=== PATIENT | female | born 1945 ===

== ENCOUNTER 2017-05-29 19:18 | Inpatient (IN) | payer MEDICAID ==
[2017-05-29 19:47] LABS: BASO % 0.8 % (0.0-2.0); EOS # 0.1 K/uL (0.0-0.7); EOS % 0.9 % (0.0-4.0); HEMOGLOBIN 13.1 g/dL (11.0-16.0); LYMPH # 3.9 K/uL (1.0-4.3); LYMPH % 65.7 % (20.0-40.0); MEAN CELL VOLUME 81.4 fL (81.0-99.0); MEAN CORPUSCULAR HEMOGLOBIN 26.7 pg (27.0-31.0); MEAN CORPUSCULAR HGB CONC 32.8 g/dL (33.0-37.0); MEAN PLATELET VOLUME 8.5 fL (7.2-11.7); MONO # 0.4 K/uL (0.0-0.8); MONO % 7.3 % (0.0-10.0); NEUT # 1.5 K/uL (1.8-7.0); NEUT % 25.3 % (50.0-75.0); NRBC % 0.1 % (0.0-2.0); RBC 4.89 Mil/uL (3.80-5.20); RED CELL DISTRIBUTION WIDTH 14.4 % (11.5-14.5); WHITE BLOOD COUNT 5.9 K/uL (4.8-10.8)
[2017-05-29 20:10] LABS: ALBUMIN 4.5 g/dL (3.5-5.0); ALT/SGPT 9 U/L (9-52); AST/SGOT 31 U/L (14-36); BLOOD UREA NITROGEN 16 mg/dL (7-17); CALCIUM 9.1 mg/dl (8.6-10.4); GFR AFRICAN-AMERICAN > 60; GFR NON-AFRICAN AMERICAN > 60
[2017-05-29] MEDS ORDERED: Iodixanol 320 MG/ML 100 ML BOTTLE IV ONE (20:30)
--- NOTE | 2017-05-29 20:53 | C.PDOC ---
History Of Present Illness 72-year-old female, presents to the emergency department with complaints of mid sternal chest pain since yesterday, increasing when he walks. Denies shortness of breath or cough. Patient has not seen PMD in two years, and has not had a cardiac workup in five years. Chief Complaint (Nursing): Chest Pain History Per: Patient History/Exam Limitations: no limitations Past Medical History Reviewed: Historical Data, Nursing Documentation, Vital Signs Vital Signs: Last Vital Signs Temp 99.1 F 05/29/17 23:40 Pulse 69 05/29/17 22:52 Resp 16 05/29/17 22:52 BP 150/85 05/29/17 22:52 Pulse Ox 100 05/29/17 22:52 - Medical History PMH: HTN Family History: States: No Known Family Hx - Social History Hx Alcohol Use: No Hx Substance Use: No - Immunization History Hx Tetanus Toxoid Vaccination: No Review Of Systems Constitutional: Negative for: Fever, Chills Cardiovascular: Positive for: Chest Pain Respiratory: Positive for: Cough, Shortness of Breath, SOB with Excertion Gastrointestinal: Negative for: Vomiting Musculoskeletal: Negative for: Back Pain Skin: Negative for: Rash Neurological: Negative for: Weakness, Numbness, Headache, Dizziness Physical Exam - Physical Exam Appears: Non-toxic, No Acute Distress Skin: Normal Color, Warm, Dry, No Rash Head: Normacephalic Eye(s): bilateral: PERRL Nose: Normal Oral Mucosa: Moist Lips: Normal Appearing Neck: Normal ROM Chest: Symmetrical Cardiovascular: Rhythm Regular, No Murmur Respiratory: Normal Breath Sounds, No Accessory Muscle Use Extremity: Normal ROM, No Deformity, No Swelling Neurological/Psych: Oriented x3, Normal Speech ED Course And Treatment - Laboratory Results Result Diagrams: 05/29/17 19:43 05/29/17 19:43 ECG: Interpreted By Me, Viewed By Me Interpretation Of ECG: ST Depression, lateral leads. left atrial enlargement. Rate From EC O2 Sat by Pulse Oximetry: 100 (RA) Pulse Ox Interpretation: Normal Disposition - Disposition Disposition: HOSPITALIZED Disposition Time: 22:15 Condition: STABLE - Clinical Impression Clinical Impression: Chest pain - Scribe Statement The provider has reviewed the documentation as recorded by the Scribe (Kavita Rodriguez) All medical record entries made by the Scribe were at my direction and personally dictated by me. I have reviewed the chart and agree that the record accurately reflects my personal performance of the history, physical exam, medical decision making, and the department course for this patient. I have also personally directed, reviewed, and agree with the discharge instructions and disposition.
--- NOTE | 2017-05-29 21:55 | CT ---
EXAM: CT Chest With Intravenous Contrast CLINICAL HISTORY: 72 years old, female; Condition or disease; Other: R/O dissection; Cardiovascular condition or disease and lung condition and disease; Aortic dissection (thoracic aorta); Location not specified; Other: Widened mediastinum; Additional info: Widened mediastium - R/O dissection TECHNIQUE: Axial computed tomography images of the chest with intravenous contrast. All CT scans at this facility use one or more dose reduction techniques, viz.: automated exposure control; ma/kV adjustment per patient size (including targeted exams where dose is matched to indication; i.e. head); or iterative reconstruction technique. Coronal and sagittal reformatted images were created and reviewed. CONTRAST: 100 mL of visipaque 320 administered intravenously. COMPARISON: No relevant prior studies available. FINDINGS: Lungs: The hypoventilatory changes are seen in the dependent portion of the right lung base in the left lung base. Discoid atelectasis is noted within the left upper lobe. Pleural space: Unremarkable. No pneumothorax. No significant effusion. Heart: Unremarkable. No cardiomegaly. No significant pericardial effusion. Bones/joints: Unremarkable. No acute fracture. No dislocation. Soft tissues: Unremarkable. Vasculature: The aortic annulus measures 1.7 mm in diameter. sinotubular junction measures 2.7 mm in diameter. The ascending thoracic aorta measures 3.3 mm in maximal diameter. The descending thoracic aorta measures 2.3 cm in diameter. No thoracic aortic aneurysm. Lymph nodes: Unremarkable. No enlarged lymph nodes. IMPRESSION: 1. No evidence of aortic dissection. 2. Discoid atelectasis left upper lobe. EXAM: CT Abdomen and Pelvis With Intravenous Contrast EXAM DATE/TIME: Exam ordered 05/29/2017 8:18 PM CLINICAL HISTORY: 72 years old, female; Condition or disease; Other: R/O dissection; Cardiovascular condition or disease and lung condition and disease; Aortic dissection (thoracic aorta); Location not specified; Other: Widened mediastinum; Additional info: Widened mediastium - R/O dissection TECHNIQUE: Axial computed tomography images of the abdomen and pelvis with intravenous contrast. All CT scans at this facility use one or more dose reduction techniques, viz.: automated exposure control; ma/kV adjustment per patient size (including targeted exams where dose is matched to indication; i.e. head); or iterative reconstruction technique. Coronal and sagittal reformatted images were created and reviewed. CONTRAST: 100 mL of visipaque 320 administered intravenously. COMPARISON: No relevant prior studies available. FINDINGS: Lung bases: Unremarkable. No mass. No consolidation. ABDOMEN: Liver: Unremarkable. No mass. Gallbladder and bile ducts: Gallstones are seen in the gallbladder. No ductal dilation. Pancreas: Unremarkable. No mass. No ductal dilation. Spleen: Unremarkable. No splenomegaly. Adrenals: Unremarkable. No mass. Kidneys and ureters: There are 3 nonobstructing calcifications in the left kidney. It measure 1.7, 2.3 and 2.4 cm respectively in maximal diameter. The largest has a density measurement of 312 H. On the right there are 2 calcifications, one in the midportion the kidney measuring 2 mm with a density measurement of approximately 300 and a second calcification in the lower pole measuring 2.4 mm the density measurement of 390 4H. Stomach and bowel: There generalized colonic diverticula with diverticulosis in the sigmoid colon. No obstruction. No mucosal thickening. Appendix: No findings to suggest acute appendicitis. PELVIS: Bladder: Unremarkable. No mass. Reproductive: Unremarkable as visualized. ABDOMEN and PELVIS: Intraperitoneal space: Unremarkable. No free air. No significant fluid collection. Bones/joints: No acute fracture. No dislocation. Soft tissues: Unremarkable. Vasculature: No abdominal aortic aneurysm. Lymph nodes: Unremarkable. No enlarged lymph nodes. IMPRESSION: 1. Bilateral nonobstructing renal calculi. 2. Gallstones. 3. Sigmoid colonic diverticulosis. No evidence of diverticulitis.
--- NOTE | 2017-05-29 23:09 | CP.PCM.HP ---
<Cee Farah - Last Filed: 05/29/17 23:54> History of Present Illness - History of Present Illness History of Present Illness: HPI: Chest Pain Patient is a 72 year old female with past medical history of HTN, who presents to the ED with her daughter with complaints of chest pain that started yesterday , while she was sleeping. Patient describes her chest pain as sharp that originates for mid-sternum to left chest wall and radiating to her neck/throat region. Patient noted associated symptoms of palpitations, diaphoresis and dyspnea and headache. Patient states she felt like she could not breath with the onset of her chest pain and it was exacerbated with walking. Patient denies prior history of this presentation, fever, chills, nausea, vomiting, neck stiffness, blurry vision, recent travels or numbness and tingling. As per daughter, patient has not seek medical care in over 5 years due to back and forth travelling to the and [facility]. PMD: Denies PMHx: HTN PSHx: Hysterectomy FHx: Mother ( due to complication of vaginal cancer), Father ( from natural causes) Medications: Bisoprolol Humifumarate Allergies: NKDA Social Hx: Lives with daughter, resides both in [facility] and [facility]. Denies any current or former use of tobacco, ETOH and illicit drugs Present on Admission - Present on Admission Any Indicators Present on Admission: No Review of Systems - Constitutional Constitutional: Headache. absent: Chills, Fever, Night Sweats - EENT Eyes: absent: Blurred Vision, Change in Vision - Cardiovascular Cardiovascular: Chest Pain, Chest Pain at Rest, Chest Pain with Activity, Diaphoresis, Dyspnea, Palpitations, Radiating Pain. absent: Irregular Heart Rhythm, Leg Edema, Lightheadedness, Orthopnea, Paroxysmal Nocturnal Dyspnea, Pedal Edema, Syncope - Respiratory Respiratory: Dyspnea. absent: Cough, Wheezing, Snoring - Gastrointestinal Gastrointestinal: absent: Abdominal Pain, Hematemesis, Hematochezia, Nausea, Vomiting - Reproductive: Female Reproductive:Female: S/P Hysterectomy - Menstruation Menstruation: S/P Hysterectomy - Musculoskeletal Musculoskeletal: absent: Neck Pain, Numbness - Neurological Neurological: absent: Dizziness, Numbness, Focal Weakness, Loss of Vision, Radicular Pain, Syncope, Tingling - Endocrine Endocrine: Palpitations Past Patient History - Past Social History Smoking Status: Never Smoked - CARDIAC Hx Hypertension: Yes - PSYCHIATRIC Hx Substance Use: No Meds Allergies/Adverse Reactions: Allergies Allergy/AdvReac Type Severity Reaction Status Date / Time No Known Allergies Allergy Unverified 05/29/17 19:25 Physical Exam - Constitutional Appears: No Acute Distress - Head Exam Head Exam: ATRAUMATIC, NORMAL INSPECTION - Eye Exam Eye Exam: EOMI, Normal appearance - ENT Exam ENT Exam: Mucous Membranes Moist - Respiratory Exam Respiratory Exam: Clear to Auscultation Bilateral, NORMAL BREATHING PATTERN. absent: Rhonchi, Wheezes, Respiratory Distress - Cardiovascular Exam Cardiovascular Exam: REGULAR RHYTHM, +S1, +S2. absent: Tachycardia, Diastolic murmur, Irregular Rhythm, Systolic Murmur - GI/Abdominal Exam GI & Abdominal Exam: Normal Bowel Sounds, Soft. absent: Distended, Firm, Guarding, Tenderness - Extremities Exam Extremities exam: Positive for: normal inspection. Negative for: calf tenderness, pedal edema, tenderness - Back Exam Back exam: NORMAL INSPECTION - Neurological Exam Neurological exam: Alert, Oriented x3 - Psychiatric Exam Psychiatric exam: Normal Affect - Skin Skin Exam: Normal Color Results - Vital Signs Recent Vital Signs: Last Vital Signs Temp 98 F 05/29/17 19:23 Pulse 69 05/29/17 22:52 Resp 16 05/29/17 22:52 BP 150/85 05/29/17 22:52 Pulse Ox 100 05/29/17 22:52 - Labs Result Diagrams: 05/29/17 19:43 05/29/17 19:43 Labs: Laboratory Results - last 24 hr 05/29/17 05/29/17 19:43 19:43 WBC 5.9 RBC 4.89 Hgb 13.1 Hct 39.8 MCV 81.4 MCH 26.7 L MCHC 32.8 L RDW 14.4 Plt Count 265 MPV 8.5 Neut % (Auto) 25.3 L Lymph % (Auto) 65.7 H Hunt % (Auto) 7.3 Eos % (Auto) 0.9 Baso % (Auto) 0.8 Neut # (Auto) 1.5 L Lymph # (Auto) 3.9 Hunt # (Auto) 0.4 Eos # (Auto) 0.1 Baso # (Auto) 0.0 Sodium 144 Potassium 3.8 Chloride 103 Carbon Dioxide 24 Anion Gap 21 H BUN 16 Creatinine 0.8 Est GFR ( Amer) > 60 Est GFR (Non-Af Amer) > 60 Random Glucose 112 H Calcium 9.1 Total Bilirubin 0.6 AST 31 ALT 9 Alkaline Phosphatase 78 Troponin I 0.0400 Total Protein 8.9 H Albumin 4.5 Globulin 4.4 H Albumin/Globulin Ratio 1.0 Assessment & Plan (1) Chest pain, rule out acute myocardial infarction Assessment and Plan: Consultation: Admissions Gate Attendant, Dr. Bach---> Help appreciated * Management as per recommendation Diagnostic testing/ Labs: Chest X-ray: No active disease CT chest with IV contrast (Rule out Dissection): No evidence of aortic dissection. 2. Discoid atelectasis left upper lobe. EKG: NSR at 88bpm, Left ventricular hypertrophy with repolarization abnormality DARRYL negative x1, f/u DARRYL x2 F/u echocardiogram F/u lipid panel, TSH and free T4, HgbA1C, Medications: * Aspirin 81mg PO daily * Crestor 5mg PO HS Status: Acute (2) Hypertension Assessment and Plan: Continue home medication: * Bisoprolol Hemifumarate 5mg PO daily * Monitor with vital sign Q4H Status: Acute (3) Prophylactic measure Assessment and Plan: GI: Protonix 40mg PO daily DVT: Lovenox 30mg SC and SCD Heart healthy diet Activity as tolerated All plans and management discussed with Dr. Jacobs Status: Acute <Rg Jacobs - Last Filed: 05/30/17 05:57> Results - Vital Signs Recent Vital Signs: Last Vital Signs Temp 98.1 F 05/29/17 23:55 Pulse 78 05/29/17 23:55 Resp 20 05/29/17 23:55 BP 164/84 H 05/29/17 23:55 Pulse Ox 100 05/30/17 00:39 - Labs Result Diagrams: 05/29/17 19:43 05/29/17 19:43 Labs: Laboratory Results - last 24 hr 05/29/17 05/29/17 05/30/17 19:43 19:43 02:32 WBC 5.9 RBC 4.89 Hgb 13.1 Hct 39.8 MCV 81.4 MCH 26.7 L MCHC 32.8 L RDW 14.4 Plt Count 265 MPV 8.5 Neut % (Auto) 25.3 L Lymph % (Auto) 65.7 H Hunt % (Auto) 7.3 Eos % (Auto) 0.9 Baso % (Auto) 0.8 Neut # (Auto) 1.5 L Lymph # (Auto) 3.9 Hunt # (Auto) 0.4 Eos # (Auto) 0.1 Baso # (Auto) 0.0 Sodium 144 Potassium 3.8 Chloride 103 Carbon Dioxide 24 Anion Gap 21 H BUN 16 Creatinine 0.8 Est GFR ( Amer) > 60 Est GFR (Non-Af Amer) > 60 Random Glucose 112 H Calcium 9.1 Total Bilirubin 0.6 AST 31 ALT 9 Alkaline Phosphatase 78 Total Creatine Kinase 58 CK-MB (Mass) 0.34 Troponin I 0.0400 0.0490 Total Protein 8.9 H Albumin 4.5 Globulin 4.4 H Albumin/Globulin Ratio 1.0 Assessment & Plan - Date & Time Date: 05/30/17 (I have seen and examined the patient. I agree with the findings and plan of care as documented by Dr. Farah. Patient with chest pain. ROMIx3 with EKG. Aspirin and Statin. Consult to cardio. 2D Echo. Continue home meds for history of hypertension. Monitor for acute changes.) Time: 05:56 Attending/Attestation - Attestation I have personally seen and examined this patient.: Yes I have fully participated in the care of the patient.: Yes I have reviewed all pertinent clinical information: Yes
--- NOTE | 2017-05-29 23:12 | CP.PCM.HP ---
Past Patient History - Past Social History Smoking Status: Never Smoked - CARDIAC Hx Hypertension: Yes - PSYCHIATRIC Hx Substance Use: No Meds Allergies/Adverse Reactions: Allergies Allergy/AdvReac Type Severity Reaction Status Date / Time No Known Allergies Allergy Unverified 05/29/17 19:25 Results - Vital Signs Recent Vital Signs: Last Vital Signs Temp 98 F 05/29/17 19:23 Pulse 69 05/29/17 22:52 Resp 16 05/29/17 22:52 BP 150/85 05/29/17 22:52 Pulse Ox 100 05/29/17 22:52 - Labs Result Diagrams: 05/29/17 19:43 05/29/17 19:43 Labs: Laboratory Results - last 24 hr 05/29/17 05/29/17 19:43 19:43 WBC 5.9 RBC 4.89 Hgb 13.1 Hct 39.8 MCV 81.4 MCH 26.7 L MCHC 32.8 L RDW 14.4 Plt Count 265 MPV 8.5 Neut % (Auto) 25.3 L Lymph % (Auto) 65.7 H Clarke % (Auto) 7.3 Eos % (Auto) 0.9 Baso % (Auto) 0.8 Neut # (Auto) 1.5 L Lymph # (Auto) 3.9 Clarke # (Auto) 0.4 Eos # (Auto) 0.1 Baso # (Auto) 0.0 Sodium 144 Potassium 3.8 Chloride 103 Carbon Dioxide 24 Anion Gap 21 H BUN 16 Creatinine 0.8 Est GFR ( Amer) > 60 Est GFR (Non-Af Amer) > 60 Random Glucose 112 H Calcium 9.1 Total Bilirubin 0.6 AST 31 ALT 9 Alkaline Phosphatase 78 Troponin I 0.0400 Total Protein 8.9 H Albumin 4.5 Globulin 4.4 H Albumin/Globulin Ratio 1.0
[2017-05-29] MEDS ORDERED: Alum-Mag Hydrox-Simethicone Susp (30 mL) PO ONE (23:25)
[2017-05-30 02:59] LABS: CK-MB 0.34 ng/mL (0.0-3.38)
[2017-05-30 03:01] LABS: TROPONIN I 0.049 ng/mL (0.00-0.120)
[2017-05-30] MEDS ORDERED: Metoprolol Succinate 25 mg XL Tab PO ONE (03:58)
[2017-05-30 07:24] LABS: BASO % 0.7 % (0.0-2.0); EOS # 0.1 K/uL (0.0-0.7); EOS % 1.5 % (0.0-4.0); HEMOGLOBIN 12.2 g/dL (11.0-16.0); LYMPH # 2.5 K/uL (1.0-4.3); LYMPH % 65.6 % (20.0-40.0); MEAN CELL VOLUME 81.3 fL (81.0-99.0); MEAN CORPUSCULAR HGB CONC 33.2 g/dL (33.0-37.0); MEAN PLATELET VOLUME 8.4 fL (7.2-11.7); MONO # 0.3 K/uL (0.0-0.8); NEUT % 25.2 % (50.0-75.0); RBC 4.51 Mil/uL (3.80-5.20); RED CELL DISTRIBUTION WIDTH 14.7 % (11.5-14.5); WHITE BLOOD COUNT 3.8 K/uL (4.8-10.8)
[2017-05-30 07:37] LABS: INR 1.1; PROTHROMBIN TIME 12.8 SECONDS (9.7-12.2)
[2017-05-30 08:01] LABS: LDL CHOLESTEROL 149 mg/dL (0-129)
[2017-05-30 08:02] LABS: ALBUMIN 3.9 g/dL (3.5-5.0); ALT/SGPT 10 U/L (9-52); AST/SGOT 27 U/L (14-36); BLOOD UREA NITROGEN 11 mg/dL (7-17); CALCIUM 8.9 mg/dl (8.6-10.4); GFR AFRICAN-AMERICAN > 60; GFR NON-AFRICAN AMERICAN > 60; HDL CHOLESTEROL 42 mg/dL (30-70)
--- NOTE | 2017-05-30 08:05 | RAD ---
PROCEDURE: CHEST RADIOGRAPH, 1 VIEW HISTORY: chest pain COMPARISON: None available. FINDINGS: LUNGS: Clear. PLEURA: No pneumothorax or pleural fluid seen. CARDIOVASCULAR: Normal. OSSEOUS STRUCTURES: No significant abnormalities. VISUALIZED UPPER ABDOMEN: Normal. OTHER FINDINGS: None. IMPRESSION: Baseline portable chest x-ray. No definite evidence of acute pulmonary disease.
[2017-05-30 08:26] LABS: CK-MB 0.31 ng/mL (0.0-3.38); TROPONIN I 0.063 ng/mL (0.00-0.120)
[2017-05-30] MEDS ORDERED: Pantoprazole 40 mg EC Tab PO SCH (10:00)
[2017-05-30] MEDS ORDERED: Enoxaparin 30 mg Syringe SC SCH (10:00)
--- NOTE | 2017-05-30 11:26 | CP.PCM.PN ---
<Shana Mayorga - Last Filed: 05/30/17 11:43> Subjective - Date & Time of Evaluation Date of Evaluation: 05/30/17 Time of Evaluation: 08:00 - Subjective Subjective: Patient was seen and examined at bedside this morning. She states that the chest pressure is still present that this sensation goes into her neck. She states she is also slightly short of breath. She denies diaphoresis, nausea/ vomiting or radiation of the pain to her jaw/arm. She reports that this sensation occurs at times when she is walking or climbing the stairs. She has never had a cardiac workup. Objective - Vital Signs/Intake and Output Vital Signs (last 24 hours): Temp Pulse Resp BP Pulse Ox 98.5 F 63 18 125/68 97 05/30/17 08:57 05/30/17 08:57 05/30/17 08:57 05/30/17 08:57 05/30/17 08:57 - Medications Medications: Current Medications Aspirin (Aspirin Chewable) 81 mg PO DAILY [facility] Bisoprolol Fumarate (Zebeta) 5 mg PO DAILY [facility] Last Admin: 05/29/17 23:40 Dose: 5 mg Enoxaparin Sodium (Lovenox) 30 mg SC DAILY [facility] Pantoprazole Sodium (Protonix Ec Tab) 40 mg PO DAILY [facility] Pneumococcal Polyvalent Vaccine (Pneumovax 23 Vaccine) 0.5 ml IM .ONCE ONE Stop: 06/02/17 10:01 Rosuvastatin Calcium (Crestor) 10 mg PO HS [facility] - Labs Labs: 05/30/17 07:16 05/30/17 07:16 PT 12.8 SECONDS (9.7-12.2) H 05/30/17 07:16 INR 1.1 05/30/17 07:16 APTT 32 SECONDS (21-34) 05/30/17 07:16 - Constitutional Appears: Non-toxic, No Acute Distress - Head Exam Head Exam: NORMAL INSPECTION - Eye Exam Eye Exam: EOMI, Normal appearance, PERRL Pupil Exam: NORMAL ACCOMODATION - ENT Exam ENT Exam: Mucous Membranes Moist - Respiratory Exam Respiratory Exam: Clear to Ausculation Bilateral, NORMAL BREATHING PATTERN. absent: Respiratory Distress - Cardiovascular Exam Cardiovascular Exam: REGULAR RHYTHM, +S1, +S2. absent: Tachycardia, JVD - GI/Abdominal Exam GI & Abdominal Exam: Soft, Normal Bowel Sounds. absent: Distended, Firm, Guarding, Tenderness - Extremities Exam Extremities Exam: Normal Inspection. absent: Pedal Edema - Back Exam Back Exam: NORMAL INSPECTION. absent: CVA tenderness (L), CVA tenderness (R), paraspinal tenderness - Neurological Exam Neurological Exam: Alert, Awake, CN II-XII Intact, Normal Gait, Oriented x3 Neuro motor strength exam: Left Upper Extremity: 5, Right Upper Extremity: 5, Left Lower Extremity: 5, Right Lower Extremity: 5 - Psychiatric Exam Psychiatric exam: Normal Affect, Normal Mood - Skin Skin Exam: Intact, Normal Color, Warm. absent: Diaphoretic Assessment and Plan - Assessment and Plan (Free Text) Assessment: 72 F with a past medical history of HTN admitted for chest pain to rule out ACS: Plan: Typical Angina Nurse Outreach Case Manager, Dr. Bach consulted, Help appreciated * Management as per recommendation -> plan for stress test on Thursday Chest X-ray: No active disease CT chest with IV contrast (Rule out Dissection): No evidence of aortic dissection. 2. Discoid atelectasis left upper lobe. EKG: NSR at 88bpm, Left ventricular hypertrophy with repolarization abnormality DARRYL negative x3 TSH 3.07 and T4 1.03 Aspirin 81mg PO daily Crestor 10mg PO HS F/u echocardiogram report f/u am labs, HbA1c Hypertension Bisoprolol 10mg PO daily (will increase from 5mg home dose) Patient was given one dose of Toprolol XL 25mg overnight Low sodium diet Hyperlipidemia Tchol 248, Trig 275, LDL 149, HDL 42 Crestor 10mg PO HS Prophylactic measure GI: Pepcid 20mg PO BID DVT: Lovenox 40mg SC, SCDs Heart healthy diet Activity as tolerated <Christiano Manjarrez - Last Filed: 05/30/17 14:39> Objective - Vital Signs/Intake and Output Vital Signs (last 24 hours): Temp Pulse Resp BP Pulse Ox 98.5 F 67 18 125/68 97 05/30/17 08:57 05/30/17 12:04 05/30/17 08:57 05/30/17 08:57 05/30/17 10:00 - Medications Medications: Current Medications Aspirin (Aspirin Chewable) 81 mg PO DAILY [facility] Last Admin: 05/30/17 11:38 Dose: 81 mg Bisoprolol Fumarate (Zebeta) 10 mg PO DAILY [facility] Enoxaparin Sodium (Lovenox) 40 mg SC DAILY [facility] Famotidine (Pepcid) 20 mg PO BID [facility] Pneumococcal Polyvalent Vaccine (Pneumovax 23 Vaccine) 0.5 ml IM .ONCE ONE Stop: 06/02/17 10:01 Rosuvastatin Calcium (Crestor) 10 mg PO HS [facility] - Labs Labs: 05/30/17 07:16 05/30/17 07:16 PT 12.8 SECONDS (9.7-12.2) H 05/30/17 07:16 INR 1.1 05/30/17 07:16 APTT 32 SECONDS (21-34) 05/30/17 07:16 Attending/Attestation - Attestation I have personally seen and examined this patient.: Yes I have fully participated in the care of the patient.: Yes I have reviewed all pertinent clinical information, including history, physical exam and plan: Yes Notes (Text): Patient seen and examined with resident, agree with above Angina symptoms with pressure like mid-sternal pain with radiation to her neck and jaw associated with mild sob Questionable history of similar pain in the past. No acute ischemic changes appreciated on ekg. Trop: 0.04-->0.04-->0.06. Elevated LDL - will increase to medium intensity statin with Crestor 10 mg. Blood pressure above goal. Optimize antihypertensives with Bisoprolol 10 mg asa/bblocker/statin echo to assess for WMA Case discussed with cardiology, Dr Bach who agrees for stress test on Thursday
--- NOTE | 2017-05-30 20:22 | CARD ---
APPROVED REPORT EXAM: Two-dimensional and M-mode echocardiogram with Doppler and color Doppler. Other Information Quality : GoodRhythm : INDICATION Chest Pain 2D DIMENSIONS IVSd1.3 (0.7-1.1cm)Aortic Root (2D)2.9 (2.0-3.7cm) LVDd3.8 (3.9-5.9cm)LVOT Diameter1.5 (1.8-2.4cm) PWd1.3 (0.7-1.1cm)LVDs2.9 (2.5-4.0cm) FS (%) 24.3 %LVEF (%)48.9 (>50%) M-Mode DIMENSIONS Left Atrium (MM)3.71 (2.5-4.0cm)Aortic Root3.42 (2.2-3.7cm) Aortic Cusp Exc.1.30 (1.5-2.0cm) Aortic Valve AI P 1/2 [id number] Mitral Valve MV E Nkekbgma40.3cm/sMV A Wufjekus099.9cm/sMV YRL40in E/A ratio0.7MVA (PHT)2.95cm2 TDI E/Lateral E'0.0E/Medial E'0.0 Tricuspid Valve TR Peak [id number]/sTR Peak Gr.[id number] LEFT VENTRICLE The left ventricle is normal size. There is borderline concentric left ventricular hypertrophy. The left ventricular function is normal. The left ventricular ejection fraction is within the normal range. There is normal LV segmental wall motion. Transmitral Doppler flow pattern is Grade I-abnormal relaxation pattern. RIGHT VENTRICLE The right ventricle is normal size. There is normal right ventricular wall thickness. The right ventricular systolic function is normal. ATRIA The left atrium size is normal. The right atrium size is normal. AORTIC VALVE The aortic valve is normal in structure. There is moderate aortic regurgitation. There is no aortic valvular stenosis. MITRAL VALVE The mitral valve is mildly thickened. There is no mitral valve stenosis. Mitral regurgitation is mild. TRICUSPID VALVE There is mild to moderate tricuspid regurgitation. There is mild to moderate pulmonary hypertension. PULMONIC VALVE There is mild pulmonic valvular regurgitation. GREAT VESSELS The aortic root is normal in size. The IVC was not visualized. <Conclusion> The left ventricle is normal size. There is borderline concentric left ventricular hypertrophy. The left ventricular function is normal. The left ventricular ejection fraction is within the normal range. There is normal LV segmental wall motion. Transmitral Doppler flow pattern is Grade I-abnormal relaxation pattern. There is moderate aortic regurgitation. Mitral regurgitation is mild. There is mild to moderate tricuspid regurgitation. There is mild to moderate pulmonary hypertension. There is mild pulmonic valvular regurgitation.
--- NOTE | 2017-05-31 00:29 | CP.PCM.PN ---
Addendum entered and electronically signed by Shana Mayorga DO 05/31/17 10:43: Impaired glucose tolerance HBA1c 6.1. Patient is to control with diet and lifestyle modifications. Original Note: <Cee Farah Yenni - Last Filed: 05/31/17 00:26> Subjective - Date & Time of Evaluation Date of Evaluation: 05/31/17 Time of Evaluation: 00:20 - Subjective Subjective: Patient was seen and examined at bedside. Patient was resting comfortably. Patient reports that she is doing well and has no acute complaints. Patient reports improving symptom of chest pain and denies SOB, palpitations, fever, chills, nausea, vomiting, diaphoresis and numbness and tingling. Patient is aware that she will be having a cardiac stress test with Dr. Bach on Thursday, Objective - Vital Signs/Intake and Output Vital Signs (last 24 hours): Temp Pulse Resp BP Pulse Ox 97.8 F 63 18 122/73 98 05/30/17 15:53 05/30/17 16:16 05/30/17 15:53 05/30/17 15:53 05/30/17 20:53 - Medications Medications: Current Medications Aspirin (Aspirin Chewable) 81 mg PO DAILY [facility] Last Admin: 05/30/17 11:38 Dose: 81 mg Bisoprolol Fumarate (Zebeta) 10 mg PO DAILY [facility] Enoxaparin Sodium (Lovenox) 40 mg SC DAILY [facility] Famotidine (Pepcid) 20 mg PO BID [facility] Last Admin: 05/30/17 17:27 Dose: 20 mg Pneumococcal Polyvalent Vaccine (Pneumovax 23 Vaccine) 0.5 ml IM .ONCE ONE Stop: 06/02/17 10:01 Rosuvastatin Calcium (Crestor) 10 mg [address] [facility] Last Admin: 05/30/17 21:47 Dose: 10 mg - Labs Labs: 05/30/17 07:16 05/30/17 07:16 PT 12.8 SECONDS (9.7-12.2) H 05/30/17 07:16 INR 1.1 05/30/17 07:16 APTT 32 SECONDS (21-34) 05/30/17 07:16 - Constitutional Appears: Well, No Acute Distress - Head Exam Head Exam: ATRAUMATIC, NORMAL INSPECTION - Eye Exam Eye Exam: EOMI, Normal appearance - ENT Exam ENT Exam: Mucous Membranes Moist - Respiratory Exam Respiratory Exam: Clear to Ausculation Bilateral, NORMAL BREATHING PATTERN. absent: Rhonchi, Wheezes - Cardiovascular Exam Cardiovascular Exam: REGULAR RHYTHM, +S1, +S2. absent: Murmur - GI/Abdominal Exam GI & Abdominal Exam: Soft, Normal Bowel Sounds. absent: Firm, Guarding, Rigid, Tenderness - Extremities Exam Extremities Exam: Normal Inspection. absent: Calf Tenderness, Pedal Edema - Neurological Exam Neurological Exam: Alert, Awake, Oriented x3 - Psychiatric Exam Psychiatric exam: Normal Affect - Skin Skin Exam: Normal Color Assessment and Plan (1) Typical angina Assessment & Plan: [facility]oles[facility] Psychiatrist, Dr. Bach consulted, Help appreciated * Management as per recommendation -> plan for stress test on Thursday Diagnostic imaging and labs: Chest X-ray: No active disease CT chest with IV contrast (Rule out Dissection): No evidence of aortic dissection. 2. Discoid atelectasis left upper lobe. EKG: NSR at 88bpm, Left ventricular hypertrophy with repolarization abnormality Echo: Left ventricular is normal size, normal ejection fraction, moderate AR, mild MR, mild to moderate TR and FL and mild to moderate pulmonary HTN. Refer to EMR for full report DARRYL negative x3 TSH 3.07 and T4 1.03 Lipid Panel: Tchol 248, Trig 275, LDL 149, HDL 42 F/u HgbA1C Medications Aspirin 81mg PO daily Crestor 10mg PO HS Status: Acute (2) Hypertension Assessment & Plan: Bisoprolol 10mg PO daily (increase from 5mg home dose) Low sodium diet Status: Acute (3) Prophylactic measure Assessment & Plan: GI: Pepcid 20mg PO BID DVT: Lovenox 40mg SC, SCDs Heart healthy diet Activity as tolerated All plans and management discussed with Dr. Loki Alvarado Status: Acute <Christiano Manjarrez - Last Filed: 05/31/17 11:07> Objective - Vital Signs/Intake and Output Vital Signs (last 24 hours): Temp Pulse Resp BP Pulse Ox 97.5 F L 52 L 20 116/71 95 05/31/17 07:25 05/31/17 07:25 05/31/17 07:25 05/31/17 07:25 05/31/17 07:25 Intake and Output: 05/31/17 05/31/17 06:59 18:59 Intake Total 0 Balance 0 - Medications Medications: Current Medications Aspirin (Aspirin Chewable) 81 mg PO DAILY [facility] Last Admin: 05/31/17 09:36 Dose: 81 mg Bisoprolol Fumarate (Zebeta) 10 mg PO DAILY [facility] Last Admin: 05/31/17 09:36 Dose: 10 mg Enoxaparin Sodium (Lovenox) 40 mg SC DAILY [facility] Last Admin: 05/31/17 09:36 Dose: 40 mg Famotidine (Pepcid) 20 mg PO BID [facility] Last Admin: 05/31/17 09:35 Dose: 20 mg Pneumococcal Polyvalent Vaccine (Pneumovax 23 Vaccine) 0.5 ml IM .ONCE ONE Stop: 06/02/17 10:01 Rosuvastatin Calcium (Crestor) [address] [facility] Last Admin: 05/30/17 21:47 Dose: 10 mg - Labs Labs: 05/31/17 07:32 05/31/17 07:32 PT 12.8 SECONDS (9.7-12.2) H 05/30/17 07:16 INR 1.1 05/30/17 07:16 APTT 32 SECONDS (21-34) 05/30/17 07:16 Attending/Attestation - Attestation I have personally seen and examined this patient.: Yes I have fully participated in the care of the patient.: Yes I have reviewed all pertinent clinical information, including history, physical exam and plan: Yes Notes (Text): Patient seen this morning. Agree with above Currently free of angina pain. Vitals reviewed. BP better controlled Echo with normal LVSF Continue current medical management plan for stress test on Thursday 06/[address] Bach Further diagnostics and/or intervention to follow depending on stress results and per cardio recommendations
--- NOTE | 2017-05-31 06:09 | CP.PCM.CON ---
History of Present Illness - History of Present Illness History of Present Illness: Patient seen and evaluated Admitted for chest pain Trops so far negative Stress test and ECHO Thursday Past Patient History - Past Social History Smoking Status: Never Smoked - CARDIAC Hx Hypertension: Yes - PSYCHIATRIC Hx Substance Use: No Meds Allergies/Adverse Reactions: Allergies Allergy/AdvReac Type Severity Reaction Status Date / Time No Known Allergies Allergy Unverified 05/29/17 19:25 - Medications Medications: Current Medications Aspirin (Aspirin Chewable) 81 mg PO DAILY [facility] Last Admin: 05/30/17 11:38 Dose: 81 mg Bisoprolol Fumarate (Zebeta) 10 mg PO DAILY [facility] Enoxaparin Sodium (Lovenox) 40 mg SC DAILY [facility] Famotidine (Pepcid) 20 mg PO BID [facility] Last Admin: 05/30/17 17:27 Dose: 20 mg Pneumococcal Polyvalent Vaccine (Pneumovax 23 Vaccine) 0.5 ml IM .ONCE ONE Stop: 06/02/17 10:01 Rosuvastatin Calcium (Crestor) 10 mg PO [facility] Last Admin: 05/30/17 21:47 Dose: 10 mg Results - Vital Signs Recent Vital Signs: Last Vital Signs Temp 98.1 F 05/30/17 23:15 Pulse 55 L 05/31/17 04:00 Resp 20 05/30/17 23:15 BP 114/69 05/30/17 23:15 Pulse Ox 97 05/30/17 23:15 - Labs Result Diagrams: 05/30/17 07:16 05/30/17 07:16 Labs: Laboratory Results - last 24 hr 05/30/17 05/30/17 05/30/17 07:16 07:16 07:16 WBC 3.8 L RBC 4.51 Hgb 12.2 Hct 36.7 MCV 81.3 MCH 27.0 MCHC 33.2 RDW 14.7 H Plt Count 237 MPV 8.4 Neut % (Auto) 25.2 L Lymph % (Auto) 65.6 H Cameron % (Auto) 7.0 Eos % (Auto) 1.5 Baso % (Auto) 0.7 Neut # (Auto) 1.0 L Lymph # (Auto) 2.5 Cameron # (Auto) 0.3 Eos # (Auto) 0.1 Baso # (Auto) 0.0 PT 12.8 H INR 1.1 APTT 32 Sodium 143 Potassium 3.8 Chloride 103 Carbon Dioxide 25 Anion Gap 18 BUN 11 Creatinine 0.7 Est GFR ( Amer) > 60 Est GFR (Non-Af Amer) > 60 Random Glucose 90 Calcium 8.9 Total Bilirubin 0.6 AST 27 ALT 10 Alkaline Phosphatase 72 Total Creatine Kinase CK-MB (Mass) Troponin I Total Protein 7.8 Albumin 3.9 Globulin 3.9 Albumin/Globulin Ratio 1.0 Triglycerides 275 H Cholesterol 248 H LDL Cholesterol Direct 149 H HDL Cholesterol 42 Free T4 TSH 3rd Generation 3.07 05/30/17 05/30/17 07:16 07:54 WBC RBC Hgb Hct MCV MCH MCHC RDW Plt Count MPV Neut % (Auto) Lymph % (Auto) Cameron % (Auto) Eos % (Auto) Baso % (Auto) Neut # (Auto) Lymph # (Auto) Cameron # (Auto) Eos # (Auto) Baso # (Auto) PT INR APTT Sodium Potassium Chloride Carbon Dioxide Anion Gap BUN Creatinine Est GFR ( Amer) Est GFR (Non-Af Amer) Random Glucose Calcium Total Bilirubin AST ALT Alkaline Phosphatase Total Creatine Kinase 62 CK-MB (Mass) 0.31 Troponin I 0.0630 Total Protein Albumin Globulin Albumin/Globulin Ratio Triglycerides Cholesterol LDL Cholesterol Direct HDL Cholesterol Free T4 1.03 TSH 3rd Generation
[2017-05-31 07:48] LABS: BASO % 0.6 % (0.0-2.0); EOS # 0.1 K/uL (0.0-0.7); EOS % 2.2 % (0.0-4.0); HEMOGLOBIN 12.3 g/dL (11.0-16.0); LYMPH # 2.2 K/uL (1.0-4.3); LYMPH % 63.5 % (20.0-40.0); MEAN CELL VOLUME 80.6 fL (81.0-99.0); MEAN CORPUSCULAR HEMOGLOBIN 26.5 pg (27.0-31.0); MEAN CORPUSCULAR HGB CONC 32.9 g/dL (33.0-37.0); MEAN PLATELET VOLUME 8.3 fL (7.2-11.7); MONO # 0.3 K/uL (0.0-0.8); MONO % 7.6 % (0.0-10.0); NEUT # 0.9 K/uL (1.8-7.0); NEUT % 26.1 % (50.0-75.0); NRBC % 0.2 % (0.0-2.0); RBC 4.64 Mil/uL (3.80-5.20); RED CELL DISTRIBUTION WIDTH 14.9 % (11.5-14.5); WHITE BLOOD COUNT 3.5 K/uL (4.8-10.8)
[2017-05-31 08:02] LABS: ALBUMIN 3.7 g/dL (3.5-5.0); ALT/SGPT 12 U/L (9-52); AST/SGOT 19 U/L (14-36); BLOOD UREA NITROGEN 15 mg/dL (7-17); CALCIUM 8.9 mg/dl (8.6-10.4); GFR AFRICAN-AMERICAN > 60; GFR NON-AFRICAN AMERICAN > 60
[2017-05-31] MEDS: Enoxaparin 40 mg Syringe SC SCH (09:36)
[2017-06-01 06:47] LABS: BASO % 0.8 % (0.0-2.0); EOS # 0.1 K/uL (0.0-0.7); EOS % 2.7 % (0.0-4.0); HEMOGLOBIN 12.1 g/dL (11.0-16.0); LYMPH # 1.6 K/uL (1.0-4.3); LYMPH % 49.4 % (20.0-40.0); MEAN CELL VOLUME 80.5 fL (81.0-99.0); MEAN CORPUSCULAR HEMOGLOBIN 26.8 pg (27.0-31.0); MEAN CORPUSCULAR HGB CONC 33.3 g/dL (33.0-37.0); MEAN PLATELET VOLUME 8.1 fL (7.2-11.7); MONO # 0.3 K/uL (0.0-0.8); MONO % 8.2 % (0.0-10.0); NEUT # 1.2 K/uL (1.8-7.0); NEUT % 38.9 % (50.0-75.0); RBC 4.51 Mil/uL (3.80-5.20); RED CELL DISTRIBUTION WIDTH 14.5 % (11.5-14.5); WHITE BLOOD COUNT 3.2 K/uL (4.8-10.8)
[2017-06-01 07:13] LABS: ALB/GLOB RATIO 1.1 (1.0-2.1); ALBUMIN 3.8 g/dL (3.5-5.0); ALT/SGPT 12 U/L (9-52); AST/SGOT 24 U/L (14-36); BLOOD UREA NITROGEN 18 mg/dL (7-17); CALCIUM 8.6 mg/dl (8.6-10.4); GFR AFRICAN-AMERICAN > 60; GFR NON-AFRICAN AMERICAN > 60
[2017-06-01] MEDS ORDERED: Aminophylline 25 mg/ml Inj ONE (07:55)
[2017-06-01] MEDS: Enoxaparin 40 mg Syringe SC SCH ×2 (11:25→11:36)
--- NOTE | 2017-06-01 16:48 | CP.PCM.PN ---
Subjective - Date & Time of Evaluation Date of Evaluation: 06/01/17 Objective - Vital Signs/Intake and Output Vital Signs (last 24 hours): Temp Pulse Resp BP Pulse Ox 97.7 F 62 20 126/74 98 06/01/17 15:39 06/01/17 15:43 06/01/17 15:39 06/01/17 15:39 06/01/17 15:39 Intake and Output: 06/01/17 06/01/17 06:59 18:59 Intake Total 0 Balance 0 - Medications Medications: Current Medications Aspirin (Aspirin Chewable) 81 mg PO DAILY [facility] Last Admin: 06/01/17 11:36 Dose: 81 mg Bisoprolol Fumarate (Zebeta) 10 mg PO DAILY [facility] Last Admin: 06/01/17 11:36 Dose: 10 mg Enoxaparin Sodium (Lovenox) 40 mg SC DAILY [facility] Last Admin: 06/01/17 11:36 Dose: 40 mg Famotidine (Pepcid) 20 mg PO BID [facility] Last Admin: 06/01/17 11:36 Dose: 20 mg Pneumococcal Polyvalent Vaccine (Pneumovax 23 Vaccine) 0.5 ml IM .ONCE ONE Stop: 06/02/17 10:01 Rosuvastatin Calcium (Crestor) 10 mg PO HS [facility] Last Admin: 05/31/17 21:22 Dose: 10 mg - Labs Labs: 06/01/17 06:39 06/01/17 06:39 PT 12.8 SECONDS (9.7-12.2) H 05/30/17 07:16 INR 1.1 05/30/17 07:16 APTT 32 SECONDS (21-34) 05/30/17 07:16 Assessment and Plan (1) Typical angina Status: Acute (2) Hypertension Status: Acute (3) Prophylactic measure Status: Acute
--- NOTE | 2017-06-01 17:21 | CP.PCM.PN ---
<Cee Farah - Last Filed: 06/01/17 17:28> Subjective - Date & Time of Evaluation Date of Evaluation: 06/01/17 Time of Evaluation: 07:15 - Subjective Subjective: Patient was seen and examined at bedside. Patient was resting comfortably. Patient reports that she is doing well and has no acute complaints. Patient reports improving symptom of chest pain and denies SOB, palpitations, fever, chills, nausea, vomiting, diaphoresis and numbness and tingling. Patient is aware that she will be having a cardiac stress test with Dr. Bach today. Objective - Vital Signs/Intake and Output Vital Signs (last 24 hours): Temp Pulse Resp BP Pulse Ox 97.7 F 62 20 126/74 98 06/01/17 15:39 06/01/17 15:43 06/01/17 15:39 06/01/17 15:39 06/01/17 15:39 Intake and Output: 06/01/17 06/01/17 06:59 18:59 Intake Total 0 Balance 0 - Medications Medications: Current Medications Aspirin (Aspirin Chewable) 81 mg PO DAILY [facility] Last Admin: 06/01/17 11:36 Dose: 81 mg Bisoprolol Fumarate (Zebeta) 10 mg PO DAILY [facility] Last Admin: 06/01/17 11:36 Dose: 10 mg Enoxaparin Sodium (Lovenox) 40 mg SC DAILY [facility] Last Admin: 06/01/17 11:36 Dose: 40 mg Famotidine (Pepcid) 20 mg PO BID [facility] Last Admin: 06/01/17 17:08 Dose: 20 mg Pneumococcal Polyvalent Vaccine (Pneumovax 23 Vaccine) 0.5 ml IM .ONCE ONE Stop: 06/02/17 10:01 Rosuvastatin Calcium (Crestor) 10 mg PO HS [facility] Last Admin: 05/31/17 21:22 Dose: 10 mg - Labs Labs: 06/01/17 06:39 06/01/17 06:39 PT 12.8 SECONDS (9.7-12.2) H 05/30/17 07:16 INR 1.1 05/30/17 07:16 APTT 32 SECONDS (21-34) 05/30/17 07:16 - Constitutional Appears: Well, No Acute Distress - Head Exam Head Exam: ATRAUMATIC, NORMAL INSPECTION - Eye Exam Eye Exam: EOMI, Normal appearance - ENT Exam ENT Exam: Mucous Membranes Moist - Respiratory Exam Respiratory Exam: Clear to Ausculation Bilateral, NORMAL BREATHING PATTERN. absent: Prolonged Expiratory Phase, Rhonchi, Wheezes, Respiratory Distress - Cardiovascular Exam Cardiovascular Exam: REGULAR RHYTHM, +S1, +S2. absent: Murmur - GI/Abdominal Exam GI & Abdominal Exam: Soft, Normal Bowel Sounds. absent: Firm, Guarding, Rigid, Tenderness - Extremities Exam Extremities Exam: Normal Inspection - Neurological Exam Neurological Exam: Alert, Awake, Oriented x3 - Psychiatric Exam Psychiatric exam: Normal Affect - Skin Skin Exam: Normal Color Assessment and Plan (1) Typical angina Assessment & Plan: [facility], Dr. Bach consulted, Help appreciated * Management as per recommendation * Stress test today, as per conversation with cardiology current resident, patient is for catherization on 06/03/17 Diagnostic imaging and labs: Chest X-ray: No active disease CT chest with IV contrast (Rule out Dissection): No evidence of aortic dissection. 2. Discoid atelectasis left upper lobe. EKG: NSR at 88bpm, Left ventricular hypertrophy with repolarization abnormality Echo: Left ventricular is normal size, normal ejection fraction, moderate AR, mild MR, mild to moderate TR and CA and mild to moderate pulmonary HTN. Refer to EMR for full report DARRYL negative x3 TSH 3.07 and T4 1.03 Lipid Panel: Tchol 248, Trig 275, LDL 149, HDL 42 HgbA1C: 6.1 Medications Aspirin 81mg PO daily Crestor 10mg PO HS Plavix 75mg PO daily Status: Acute (2) Hypertension Assessment & Plan: Bisoprolol 10mg PO daily (increase from 5mg home dose) Low sodium diet Status: Acute (3) Glucose intolerance (impaired glucose tolerance) Assessment & Plan: HBA1c 6.1 Counselled on diet control and life style modification Status: Acute (4) Prophylactic measure Assessment & Plan: GI: Pepcid 20mg PO BID DVT: Lovenox 40mg SC, SCDs Heart healthy diet Activity as tolerated All plans and management discussed with Dr. Cipriano Gordillo Status: Acute <Levon Gordillo - Last Filed: 06/01/17 19:28> Objective - Vital Signs/Intake and Output Vital Signs (last 24 hours): Temp Pulse Resp BP Pulse Ox 97.7 F 62 20 126/74 98 06/01/17 15:39 06/01/17 15:43 06/01/17 15:39 06/01/17 15:39 06/01/17 15:39 - Medications Medications: Current Medications Aspirin (Aspirin Chewable) 81 mg PO DAILY [facility] Last Admin: 06/01/17 11:36 Dose: 81 mg Bisoprolol Fumarate (Zebeta) 10 mg PO DAILY [facility] Last Admin: 06/01/17 11:36 Dose: 10 mg Clopidogrel Bisulfate (Plavix) 75 mg PO DAILY [facility] Enoxaparin Sodium (Lovenox) 40 mg SC DAILY [facility] Last Admin: 06/01/17 11:36 Dose: 40 mg Famotidine (Pepcid) 20 mg PO BID [facility] Last Admin: 06/01/17 17:08 Dose: 20 mg Pneumococcal Polyvalent Vaccine (Pneumovax 23 Vaccine) 0.5 ml IM .ONCE ONE Stop: 06/02/17 10:01 Rosuvastatin Calcium (Crestor) 10 mg PO HS [facility] Last Admin: 05/31/17 21:22 Dose: 10 mg - Labs Labs: 06/01/17 06:39 06/01/17 06:39 PT 12.8 SECONDS (9.7-12.2) H 05/30/17 07:16 INR 1.1 05/30/17 07:16 APTT 32 SECONDS (21-34) 05/30/17 07:16 Attending/Attestation - Attestation I have personally seen and examined this patient.: Yes I have fully participated in the care of the patient.: Yes I have reviewed all pertinent clinical information, including history, physical exam and plan: Yes Notes (Text): 06/01/17 19:26 Patient was seen and examined at 11:35 AM Exam, assessment and plan were gone over with the resident. Cardiology Dr. Bach after review of Stress Test today recommends and has planned for Cardiac Catheterization for Thursday06/03/17 morning. Levon Gordillo D.O.
[2017-06-01] MEDS ORDERED: Benzocaine/Menthol (Cepacol) Lozenge MT ONE (18:30)
--- NOTE | 2017-06-01 20:38 | CARD ---
APPROVED REPORT EKG Measurement Heart [id number] [place] [id number] [id number] <Conclusion> Normal sinus rhythm Left ventricular hypertrophy with repolarization abnormality Consider infero-lateral ischemia Abnormal ECG
--- NOTE | 2017-06-01 22:01 | CARD ---
APPROVED REPORT Protocol: LEXISCAN Test Type: LEXISCAN STRESS Test Indications: CHEST PAIN Medications: LIST Target HR: 150 bpm Resting ECG: NSR W/ NS ST T CHANGES Resting Heart Rate: 80 bpm Resting Blood Pressure: 128/80mmHg submaximum (85%): 128 bpm TEST SUMMARY [id number]:01..1.0./.0. PREINFSNHYPERV.08:[id number]/80.0. INFUSIONDOSE 100:[id number]/80.0. [id number]:040.00.01.080/80.0. PROCEDURE Pharmacologic stress testing was performed using 0.4mg per 5ml of regadenoson given intravenously over 7-10 seconds. Reversal agent aminophyline 100 mg, given intravenously for Syncope.Headache. POST EXERCISE Reason for Termination: Protocol Completed Target HR: No Max HR: 81 bpm 64% of Maximum Predicted HR: 150 bpm Exercise duration: 00:30 min:sec, 0 Stage Exercise capacity: 1.0METs Max Blood Pressure: 128/80mmHg Blood Pressure response to exercise: normal resting BP - appropriate response Heart Rate response to exercise: appropriate Chest Pain: No, none Angina index: 0 Arrhythmia: No, none ST Change: Yes, Depression horizontal 1 MM IN LEAD V3, 2MM IN V4-V6 Deviation: 0 mm INTERPRETATION Stress EKG Conclusion: POSITIVE LEXISCAN STRESS TEST NORMAL BP RESPONSE TO LEXISCAN NUCLEAR STUDIES TO BE READ SEPARATELY EXAM: Myocardial Perfusion STRESS/REST Imaging Protocol The imaging protocol used to acquire images was Stress Tc-99m/rest Tc-99m 1 day Stress Spect myocardial perfusion imaging was performed in supine position 41 minutes following the injection of 13.2 mCi of Tc-99 Myoview. Gated Rest Spect was performed 40 minutes after intravenous 32.6 mCi Tc-99 Myoview injection. The images were gated to evaluate regional wall motion and calculate ventricular ejection fraction.Images were reconstructed using backfilter projection method in short horizontal and verticle long axis. Spect slices were generated. RESTING DATA EDV48.00ml ESV7.00mlMyocardial Kzln886.00g EF85.00% STRESS DATA EDV70.00ml ESV15.00mlMyocardial Rxfo557.00g EF79.00% Regional WT score at stress:0.00 Regional WM score at stress:0.00 Summed WT score at stress:2.00 Summed WM score at stress:0.00 LV Perf. Quant 17 Seg. SSS10.00 17 Seg. SRS0.00 17 Seg. SDS10.00 Stress Defect Extent (% LAD)56.90Rest Defect Extent (% LAD)0.00Rev. Defect Extent (% LAD)56.90 Stress Defect Extent (% LCX)0.00Rest Defect Extent (% LCX)0.00Rev. Defect Extent (% LCX)0.00 Stress Defect Extent (% RCA)0.00Rest Defect Extent (% RCA)0.00Rev. Defect Extent (% RCA)0.00 Stress Defect Extent (% CHRISTOPHER)22.60Rest Defect Extent (% CHRISTOPHER)0.00Rev. Defect Extent (% CHRISTOPHER)22.60 IMPRESSION Normal Myocardial Perfusion exercise stress study Left Ventricle LV Size/Shape: The left ventricle is normal size. LV Function:Left ventricle systolic function is normal. The Ejection Fraction is >70%. Regional Wall Motion:There is normal left ventricular wall motion. Metabolism/Perfusion Defects: There is no scan evidence of reversible ischemia noted. Conclusion 1. There is no scan evidence of reversible ischemia noted. 2. Left ventricle systolic function is normal. 3. The Ejection Fraction is >70%.
--- NOTE | 2017-06-01 22:46 | CP.PCM.PN ---
Subjective - Date & Time of Evaluation Date of Evaluation: 06/01/17 Time of Evaluation: 16:20 - Subjective Subjective: Patient with abnormal stress test and exertional angina For cath Thursday am ASA, Plavix, Statins and B blockers Objective - Vital Signs/Intake and Output Vital Signs (last 24 hours): Temp Pulse Resp BP Pulse Ox 97.7 F 62 20 126/74 98 06/01/17 15:39 06/01/17 15:43 06/01/17 15:39 06/01/17 15:39 06/01/17 15:39 - Medications Medications: Current Medications Aspirin (Aspirin Chewable) 81 mg PO DAILY [facility] Last Admin: 06/01/17 11:36 Dose: 81 mg Bisoprolol Fumarate (Zebeta) 10 mg PO DAILY [facility] Last Admin: 06/01/17 11:36 Dose: 10 mg Clopidogrel Bisulfate (Plavix) 75 mg PO DAILY [facility] Enoxaparin Sodium (Lovenox) 40 mg SC DAILY [facility] Last Admin: 06/01/17 11:36 Dose: 40 mg Famotidine (Pepcid) 20 mg PO BID [facility] Last Admin: 06/01/17 17:08 Dose: 20 mg Pneumococcal Polyvalent Vaccine (Pneumovax 23 Vaccine) 0.5 ml IM .ONCE ONE Stop: 06/02/17 10:01 Rosuvastatin Calcium (Crestor) 10 mg PO HS [facility] Last Admin: 06/01/17 21:11 Dose: 10 mg - Labs Labs: 06/01/17 06:39 06/01/17 06:39 PT 12.8 SECONDS (9.7-12.2) H 05/30/17 07:16 INR 1.1 05/30/17 07:16 APTT 32 SECONDS (21-34) 05/30/17 07:16
[2017-06-02 07:18] LABS: BASO % 0.8 % (0.0-2.0); EOS # 0.1 K/uL (0.0-0.7); EOS % 2.4 % (0.0-4.0); HEMOGLOBIN 12.9 g/dL (11.0-16.0); LYMPH # 1.8 K/uL (1.0-4.3); MEAN CELL VOLUME 81.2 fL (81.0-99.0); MEAN CORPUSCULAR HEMOGLOBIN 26.8 pg (27.0-31.0); MEAN CORPUSCULAR HGB CONC 33.1 g/dL (33.0-37.0); MEAN PLATELET VOLUME 8.4 fL (7.2-11.7); MONO # 0.4 K/uL (0.0-0.8); MONO % 11.6 % (0.0-10.0); NEUT # 1.4 K/uL (1.8-7.0); NEUT % 37.2 % (50.0-75.0); NRBC % 0.1 % (0.0-2.0); RBC 4.82 Mil/uL (3.80-5.20); RED CELL DISTRIBUTION WIDTH 14.5 % (11.5-14.5); WHITE BLOOD COUNT 3.7 K/uL (4.8-10.8)
--- NOTE | 2017-06-02 07:46 | CP.PCM.PN ---
<Cee Farah E - Last Filed: 06/02/17 10:45> Subjective - Date & Time of Evaluation Date of Evaluation: 06/02/17 Time of Evaluation: 07:00 - Subjective Subjective: Progress note ( Dr. Cipriano Gordillo's service) Patient was seen and examined at bedside. Patient was resting comfortably. Patient reports that she is doing well and has no acute complaints. Patient reports improving symptom of chest pain and denies SOB, palpitations, fever, chills, nausea, vomiting, diaphoresis and numbness and tingling. Patient admits to non-productive cough but denies cough medicine when asked. Patient is aware that she is having a cardiac catherization tomorrow, Thursday (06/03/17) Objective - Vital Signs/Intake and Output Vital Signs (last 24 hours): Temp Pulse Resp BP Pulse Ox 98.0 F 63 20 120/76 97 06/02/17 07:20 06/02/17 07:20 06/02/17 07:20 06/02/17 07:20 06/02/17 07:20 - Medications Medications: Current Medications Aspirin (Aspirin Chewable) 81 mg PO DAILY [facility] Last Admin: 06/01/17 11:36 Dose: 81 mg Bisoprolol Fumarate (Zebeta) 10 mg PO DAILY [facility] Last Admin: 06/01/17 11:36 Dose: 10 mg Clopidogrel Bisulfate (Plavix) 75 mg PO DAILY [facility] Enoxaparin Sodium (Lovenox) 40 mg SC DAILY [facility] Last Admin: 06/01/17 11:36 Dose: 40 mg Famotidine (Pepcid) 20 mg PO BID [facility] Last Admin: 06/01/17 17:08 Dose: 20 mg Pneumococcal Polyvalent Vaccine (Pneumovax 23 Vaccine) 0.5 ml IM .ONCE ONE Stop: 06/02/17 10:01 Rosuvastatin Calcium (Crestor) 10 mg PO [facility] Last Admin: 06/01/17 21:11 Dose: 10 mg - Labs Labs: 06/02/17 07:03 06/01/17 06:39 PT 12.8 SECONDS (9.7-12.2) H 05/30/17 07:16 INR 1.1 05/30/17 07:16 APTT 32 SECONDS (21-34) 05/30/17 07:16 - Constitutional Appears: Well, No Acute Distress - Head Exam Head Exam: ATRAUMATIC, NORMAL INSPECTION - Eye Exam Eye Exam: EOMI, Normal appearance - ENT Exam ENT Exam: Mucous Membranes Moist - Respiratory Exam Respiratory Exam: Clear to Ausculation Bilateral, NORMAL BREATHING PATTERN. absent: Chest Wall Tenderness, Decreased Breath Sounds, Prolonged Expiratory Phase, Rhonchi, Wheezes, Respiratory Distress - Cardiovascular Exam Cardiovascular Exam: REGULAR RHYTHM, +S1, +S2. absent: Tachycardia, Irregular Rhythm, Murmur - GI/Abdominal Exam GI & Abdominal Exam: Soft, Normal Bowel Sounds. absent: Distended, Firm, Guarding, Rigid, Tenderness - Extremities Exam Extremities Exam: Normal Inspection. absent: Calf Tenderness, Pedal Edema, Tenderness - Neurological Exam Neurological Exam: Alert, Awake, Oriented x3 - Psychiatric Exam Psychiatric exam: Normal Affect - Skin Skin Exam: Normal Color Assessment and Plan (1) Typical angina Assessment & Plan: Ui Ux Web Developer, Dr. Bach consulted, Help appreciated * Management as per recommendation * Stress test today, as per conversation with cardiology current resident, patient is for catherization on 06/03/17 Diagnostic imaging and labs: Chest X-ray: No active disease CT chest with IV contrast (Rule out Dissection): No evidence of aortic dissection. 2. Discoid atelectasis left upper lobe. EKG: NSR at 88bpm, Left ventricular hypertrophy with repolarization abnormality Echo: Left ventricular is normal size, normal ejection fraction, moderate AR, mild MR, mild to moderate TR and ID and mild to moderate pulmonary HTN. Refer to EMR for full report DARRYL negative x3 TSH 3.07 and T4 1.03 Lipid Panel: Tchol 248, Trig 275, LDL 149, HDL 42 HgbA1C: 6.1 Medications Aspirin 81mg PO daily Crestor 10mg PO HS Plavix 75mg PO daily Status: Acute (2) Hypertension Assessment & Plan: BP stable with medications Bisoprolol 10mg PO daily (increase from 5mg home dose) Low sodium diet Status: Acute (3) Glucose intolerance (impaired glucose tolerance) Assessment & Plan: HBA1c 6.1 Counselled on diet control and life style modification Status: Acute (4) Prophylactic measure Assessment & Plan: GI: Pepcid 20mg PO BID DVT: Lovenox 40mg SC, SCDs--->Lovenox 40mg SC dose will be held for cardiac catherization, 06/03/17 Heart healthy diet Activity as tolerated All plans and management discussed with Dr. Cipriano Gordillo Status: Acute <Levon Gordillo - Last Filed: 06/02/17 17:07> Objective - Vital Signs/Intake and Output Vital Signs (last 24 hours): Temp Pulse Resp BP Pulse Ox 97.5 F L 86 20 137/77 97 06/02/17 15:00 06/02/17 15:50 06/02/17 15:00 06/02/17 15:00 06/02/17 15:00 - Medications Medications: Current Medications Aspirin (Aspirin Chewable) 81 mg PO DAILY [facility] Last Admin: 06/02/17 10:07 Dose: 81 mg Bisoprolol Fumarate (Zebeta) 10 mg PO DAILY [facility] Last Admin: 06/02/17 10:07 Dose: 10 mg Clopidogrel Bisulfate (Plavix) 75 mg PO DAILY [facility] Last Admin: 06/02/17 10:07 Dose: 75 mg Enoxaparin Sodium (Lovenox) 40 mg SC DAILY [facility] Last Admin: 06/02/17 10:07 Dose: 40 mg Famotidine (Pepcid) 20 mg PO BID [facility] Last Admin: 06/02/17 10:07 Dose: 20 mg Rosuvastatin Calcium (Crestor) 10 mg PO HS [facility] Last Admin: 06/01/17 21:11 Dose: 10 mg - Labs Labs: 06/02/17 07:03 06/02/17 07:03 PT 12.8 SECONDS (9.7-12.2) H 05/30/17 07:16 INR 1.1 05/30/17 07:16 APTT 32 SECONDS (21-34) 05/30/17 07:16 Attending/Attestation - Attestation I have personally seen and examined this patient.: Yes I have fully participated in the care of the patient.: Yes I have reviewed all pertinent clinical information, including history, physical exam and plan: Yes Notes (Text): 06/02/17 17:05 Patient was seen and examined at 8:30 AM with Nurse Geoffrey who helped to translate. Explained that she will be having cardiac catheterization with Dr. Bach 06/03/17 and explained to her what the purpose of this procedure was. She had no further questions. Levon Gordillo D.O.
[2017-06-02 08:18] LABS: ALBUMIN 3.9 g/dL (3.5-5.0); ALT/SGPT 12 U/L (9-52); AST/SGOT 31 U/L (14-36); BLOOD UREA NITROGEN 18 mg/dL (7-17); CALCIUM 8.9 mg/dl (8.6-10.4); GFR AFRICAN-AMERICAN > 60; GFR NON-AFRICAN AMERICAN 55
[2017-06-02] MEDS ORDERED: Pneumococcal 23-Valent Vaccine IM ONE (10:00)
[2017-06-02] MEDS: Enoxaparin 40 mg Syringe SC SCH (10:07)
[2017-06-02] MEDS ORDERED: DiphenhydrAMINE 50 mg/ml Inj IVP ONE (16:09)
--- NOTE | 2017-06-02 23:33 | CP.PCM.PN ---
Subjective - Date & Time of Evaluation Date of Evaluation: 06/02/17 Time of Evaluation: 19:45 - Subjective Subjective: Patient seen and evaluated Denies chest pain and dyspnea Patient scheduled for cath in am Objective - Vital Signs/Intake and Output Vital Signs (last 24 hours): Temp Pulse Resp BP Pulse Ox 97.5 F L 86 20 137/77 97 06/02/17 15:00 06/02/17 15:50 06/02/17 15:00 06/02/17 15:00 06/02/17 15:00 - Medications Medications: Current Medications Aspirin (Aspirin Chewable) 81 mg PO DAILY [facility] Last Admin: 06/02/17 10:07 Dose: 81 mg Bisoprolol Fumarate (Zebeta) 10 mg PO DAILY [facility] Last Admin: 06/02/17 10:07 Dose: 10 mg Clopidogrel Bisulfate (Plavix) 75 mg PO DAILY [facility] Last Admin: 06/02/17 10:07 Dose: 75 mg Enoxaparin Sodium (Lovenox) 40 mg SC DAILY [facility] Last Admin: 06/02/17 10:07 Dose: 40 mg Famotidine (Pepcid) 20 mg PO BID [facility] Last Admin: 06/02/17 17:05 Dose: 20 mg Rosuvastatin Calcium (Crestor) 10 mg PO HS [facility] Last Admin: 06/01/17 21:11 Dose: 10 mg - Labs Labs: 06/02/17 07:03 06/02/17 07:03 PT 12.8 SECONDS (9.7-12.2) H 05/30/17 07:16 INR 1.1 05/30/17 07:16 APTT 32 SECONDS (21-34) 05/30/17 07:16
[2017-06-03 06:59] LABS: BASO % 0.7 % (0.0-2.0); EOS # 0.1 K/uL (0.0-0.7); EOS % 3.2 % (0.0-4.0); HEMOGLOBIN 12.4 g/dL (11.0-16.0); LYMPH # 2.2 K/uL (1.0-4.3); LYMPH % 56.1 % (20.0-40.0); MEAN CELL VOLUME 81.1 fL (81.0-99.0); MEAN CORPUSCULAR HEMOGLOBIN 26.9 pg (27.0-31.0); MEAN CORPUSCULAR HGB CONC 33.1 g/dL (33.0-37.0); MEAN PLATELET VOLUME 8.1 fL (7.2-11.7); MONO # 0.4 K/uL (0.0-0.8); MONO % 11.3 % (0.0-10.0); NEUT # 1.1 K/uL (1.8-7.0); NEUT % 28.7 % (50.0-75.0); NRBC % 0.1 % (0.0-2.0); RBC 4.63 Mil/uL (3.80-5.20); RED CELL DISTRIBUTION WIDTH 14.3 % (11.5-14.5); WHITE BLOOD COUNT 3.9 K/uL (4.8-10.8)
[2017-06-03 07:05] LABS: INR 1.1; PROTHROMBIN TIME 12.8 SECONDS (9.7-12.2)
[2017-06-03] MEDS ORDERED: Midazolam 2 MG/2 ML VIAL ONE (07:11)
[2017-06-03 07:26] LABS: ALBUMIN 3.9 g/dL (3.5-5.0); ALT/SGPT 22 U/L (9-52); AST/SGOT 43 U/L (14-36); BLOOD UREA NITROGEN 19 mg/dL (7-17); CALCIUM 8.9 mg/dl (8.6-10.4); GFR AFRICAN-AMERICAN > 60; GFR NON-AFRICAN AMERICAN 55
--- NOTE | 2017-06-03 07:50 | CP.PCM.PN ---
Subjective - Date & Time of Evaluation Date of Evaluation: 06/03/17 Time of Evaluation: 07:48 - Subjective Subjective: Patient s/p LHC Proximal LAD 99%, Mid LAD 90% Other arteries unremarkable EF 55% For PCI of LAD by Dr. Paris in [facility] [place] tomorrow Resume diet OOB to Chair after 12 noon No ambulation/or strenuous activities ASA, Plavix, Statin, B blockers and Therapeutic Lovemox Objective - Vital Signs/Intake and Output Vital Signs (last 24 hours): Temp Pulse Resp BP Pulse Ox 98.2 F 70 18 136/80 99 06/03/17 06:48 06/03/17 06:48 06/03/17 06:48 06/03/17 06:48 06/03/17 06:48 - Medications Medications: Current Medications Aspirin (Aspirin Chewable) 81 mg PO DAILY [facility] Last Admin: 06/02/17 10:07 Dose: 81 mg Bisoprolol Fumarate (Zebeta) 10 mg PO DAILY [facility] Last Admin: 06/02/17 10:07 Dose: 10 mg Clopidogrel Bisulfate (Plavix) 75 mg PO DAILY [facility] Last Admin: 06/02/17 10:07 Dose: 75 mg Enoxaparin Sodium (Lovenox) 60 mg SC Q12 [facility] Famotidine (Pepcid) 20 mg PO BID [facility] Last Admin: 06/02/17 17:05 Dose: 20 mg Rosuvastatin Calcium (Crestor) 10 mg PO HS [facility] Last Admin: 06/01/17 21:11 Dose: 10 mg - Labs Labs: 06/03/17 06:55 06/03/17 06:55 PT 12.8 SECONDS (9.7-12.2) H 06/03/17 06:55 INR 1.1 06/03/17 06:55 APTT 32 SECONDS (21-34) 05/30/17 07:16
--- NOTE | 2017-06-03 12:01 | CARDCATH ---
PROCEDURE DATE: 06/03/2017 REFERRING PHYSICIAN: Levon Gordillo MD PERFORMING PHYSICIAN: Chuck Bach MD CLINICAL INDICATIONS: Exertional angina, abnormal stress test, hypertension. PROCEDURE: After informed consent, the patient was prepped and draped in the usual sterile fashion. A 2% lidocaine was given in the right groin for local anesthesia. Using micropuncture technique, a 6-Guamanian sheath was introduced into the right common femoral artery. Using a JL4 6-Guamanian diagnostic catheter, the left main coronary artery was engaged. Contrast injected and left coronary angiogram was done. JR4 diagnostic catheter crossed into left ventricle across the aortic valve. Contrast injected and LV angiogram was done. LVEDP was measured. The catheter was pulled back across the aortic valve and gradient was measured. Then the same catheter engaged into right coronary artery. Contrast injected and right coronary angiogram was done. The patient tolerated the procedure well. FINDINGS: 1. Left main coronary artery is patent. 2. LAD proximal has a tight 99% stenosis. Mid LAD has a 90% stenosis. 3. Left circumflex is dominant and patent. 4. Right coronary artery is nondominant and patent. 5. LV ejection fraction is approximately 55%. Mild anterolateral hypokinesis. IMPRESSION: 1. Critical single vessel coronary artery disease. 2. Normal left ventricular systolic function. PLAN: Recommend percutaneous coronary intervention of the LAD. Chuck Bach MD
[2017-06-03] MEDS: Enoxaparin 60 mg Syringe SC SCH ×2 (13:51→21:15)
--- NOTE | 2017-06-03 14:03 | CP.PCM.PN ---
<Cee Farah E - Last Filed: 06/03/17 13:49> Subjective - Date & Time of Evaluation Date of Evaluation: 06/03/17 Time of Evaluation: 07:10 - Subjective Subjective: Progress note ( Dr. Cipriano Gordillo's service) Patient was seen and examined at bedside. Patient was resting comfortably in a chair with one of her daughter at bedside. Patient reports that she is doing well and has no acute complaints. Patient continues to report improving symptom of chest pain and denies SOB, palpitations, fever, chills, nausea, vomiting, diaphoresis and numbness and tingling. Patient and patient's daughter is aware that she will [place] [facility] due to abnormal diagnostic cardiac catherization Objective - Vital Signs/Intake and Output Vital Signs (last 24 hours): Temp Pulse Resp BP Pulse Ox 98.2 F 70 18 136/80 99 06/03/17 06:48 06/03/17 06:48 06/03/17 06:48 06/03/17 06:48 06/03/17 06:48 - Medications Medications: Current Medications Aspirin (Aspirin Chewable) 81 mg PO DAILY [facility] Last Admin: 06/03/17 09:29 Dose: 81 mg Bisoprolol Fumarate (Zebeta) 10 mg PO DAILY [facility] Last Admin: 06/03/17 09:29 Dose: 10 mg Clopidogrel Bisulfate (Plavix) 75 mg PO DAILY [facility] Last Admin: 06/03/17 09:29 Dose: 75 mg Enoxaparin Sodium (Lovenox) 60 mg SC Q12 [facility] Famotidine (Pepcid) 20 mg PO BID [facility] Last Admin: 06/03/17 09:29 Dose: 20 mg Rosuvastatin Calcium (Crestor) 10 mg PO HS [facility] Last Admin: 06/01/17 21:11 Dose: 10 mg - Labs Labs: 06/03/17 06:55 06/03/17 06:55 PT 12.8 SECONDS (9.7-12.2) H 06/03/17 06:55 INR 1.1 06/03/17 06:55 APTT 32 SECONDS (21-34) 05/30/17 07:16 - Constitutional Appears: Well, No Acute Distress - Head Exam Head Exam: ATRAUMATIC, NORMAL INSPECTION - Eye Exam Eye Exam: EOMI, Normal appearance - ENT Exam ENT Exam: Mucous Membranes Moist - Respiratory Exam Respiratory Exam: Clear to Ausculation Bilateral, NORMAL BREATHING PATTERN. absent: Prolonged Expiratory Phase, Rhonchi, Wheezes, Respiratory Distress - Cardiovascular Exam Cardiovascular Exam: REGULAR RHYTHM, +S1, +S2. absent: Murmur - GI/Abdominal Exam GI & Abdominal Exam: Soft, Normal Bowel Sounds. absent: Distended, Firm, Guarding, Rigid, Tenderness - Extremities Exam Extremities Exam: Normal Inspection. absent: Calf Tenderness, Pedal Edema Additional comments: S/P diagnostic cardiac catherization; left groin dressing clean, dry and intact. No hematoma - Neurological Exam Neurological Exam: Alert, Awake, Oriented x3 - Psychiatric Exam Psychiatric exam: Normal Affect, Normal Mood - Skin Skin Exam: Normal Color Assessment and Plan (1) Typical angina Assessment & Plan: Recruitment Specialist, Dr. Bach consulted, Help appreciated * Management as per recommendation * Stress test today, as per conversation with cardiology current resident, patient is for catherization on 06/03/17 Diagnostic imaging and labs: Chest X-ray: No active disease CT chest with IV contrast (Rule out Dissection): No evidence of aortic dissection. 2. Discoid atelectasis left upper lobe. EKG: NSR at 88bpm, Left ventricular hypertrophy with repolarization abnormality Echo: Left ventricular is normal size, normal ejection fraction, moderate AR, mild MR, mild to moderate TR and VT and mild to moderate pulmonary HTN. Refer to EMR for full report Abnormal stress test (06/02/17) Diagnostic cardiac catherization (06/03/17): Proximal LAD 99%, Mid LAD 90%,Other arteries unremarkable, EF 55%- Plans [place] [facility] [place] DARRYL negative x3 TSH 3.07 and T4 1.03 Lipid Panel: Tchol 248, Trig 275, LDL 149, HDL 42 HgbA1C: 6.1 Medications Aspirin 81mg PO daily Crestor 10mg PO HS Plavix 75mg PO daily Status: Acute (2) Hypertension Assessment & Plan: BP stable with medications Bisoprolol 10mg PO daily (increase from 5mg home dose) Low sodium diet Status: Acute (3) Glucose intolerance (impaired glucose tolerance) Assessment & Plan: HBA1c 6.1 Counselled on diet control and life style modification Status: Acute (4) Prophylactic measure Assessment & Plan: GI: Pepcid 20mg PO BID DVT: Lovenox 40mg SC, SCDs--->Lovenox 40mg SC dose will be held for PCI, 06/04/17 Heart healthy diet Activity as tolerated All plans and management discussed with Dr. Cipriano Gordillo Status: Acute <Levon Gordillo - Last Filed: 06/03/17 20:45> Objective - Vital Signs/Intake and Output Vital Signs (last 24 hours): Temp Pulse Resp BP Pulse Ox 97.4 F L 68 20 150/76 97 06/03/17 16:01 06/03/17 16:51 06/03/17 16:01 06/03/17 16:01 06/03/17 16:01 - Medications Medications: Current Medications Aspirin (Aspirin Chewable) 81 mg PO DAILY [facility] Last Admin: 06/03/17 09:29 Dose: 81 mg Bisoprolol Fumarate (Zebeta) 10 mg PO DAILY [facility] Last Admin: 06/03/17 09:29 Dose: 10 mg Clopidogrel Bisulfate (Plavix) 75 mg PO DAILY [facility] Last Admin: 06/03/17 09:29 Dose: 75 mg Enoxaparin Sodium (Lovenox) 60 mg SC Q12 [facility] Last Admin: 06/03/17 13:51 Dose: 60 mg Famotidine (Pepcid) 20 mg PO BID [facility] Last Admin: 06/03/17 17:47 Dose: 20 mg Rosuvastatin Calcium (Crestor) 10 mg PO HS [facility] Last Admin: 06/01/17 21:11 Dose: 10 mg - Labs Labs: 06/03/17 06:55 06/03/17 06:55 PT 12.8 SECONDS (9.7-12.2) H 06/03/17 06:55 INR 1.1 06/03/17 06:55 APTT 32 SECONDS (21-34) 05/30/17 07:16 Attending/Attestation - Attestation I have personally seen and examined this patient.: Yes I have fully participated in the care of the patient.: Yes I have reviewed all pertinent clinical information, including history, physical exam and plan: Yes Notes (Text): 06/03/17 20:42 Patient was seen shortly after her Cardiac Catheterization Exam, assessment and plan were gone over with Resident Dr. Jo Farah. Discussed with Dr. Bach :Cardiac Catheterization showed Proxmial LAD 99% and Mid LAD 50% occlusion Discussed with Dr. Paris: he has arranged for PCI with Stent placement at [facility] for morning 06/04/17. Patient will be transferred back to [facility] afterwards for monitoring and if no issues will be discharged on 06/05/17. Plan was explained to patient via english translation provided by Nurse Yesinia Continue current medications: ASA 81 mg PO 1x/day Bisoprolol 10 mg PO 1x/day Plavix 75 mg PO 1x/day Lovenox 60 mg SC Q12H Pepcid 20 mg PO 2x/day Crestor 10 mg PO HS Levon Gordillo D.O.
[2017-06-03 16:03] VITALS: RESP 20
[2017-06-04 07:30] LABS: BASO % 0.6 % (0.0-2.0); EOS # 0.1 K/uL (0.0-0.7); HEMOGLOBIN 12.6 g/dL (11.0-16.0); LYMPH # 1.7 K/uL (1.0-4.3); LYMPH % 38.1 % (20.0-40.0); MEAN CELL VOLUME 81.3 fL (81.0-99.0); MEAN CORPUSCULAR HEMOGLOBIN 26.8 pg (27.0-31.0); MEAN PLATELET VOLUME 8.6 fL (7.2-11.7); MONO # 0.4 K/uL (0.0-0.8); MONO % 9.4 % (0.0-10.0); NEUT # 2.3 K/uL (1.8-7.0); NEUT % 49.9 % (50.0-75.0); NRBC % 0.1 % (0.0-2.0); RBC 4.71 Mil/uL (3.80-5.20); RED CELL DISTRIBUTION WIDTH 14.5 % (11.5-14.5); WHITE BLOOD COUNT 4.5 K/uL (4.8-10.8)
[2017-06-04 07:51] LABS: ALB/GLOB RATIO 1.1 (1.0-2.1); ALT/SGPT 18 U/L (9-52); AST/SGOT 30 U/L (14-36); BLOOD UREA NITROGEN 12 mg/dL (7-17); CALCIUM 8.8 mg/dl (8.6-10.4); GFR AFRICAN-AMERICAN > 60; GFR NON-AFRICAN AMERICAN > 60
--- NOTE | 2017-06-04 10:38 | CP.PCM.PN ---
<Cee Farah E - Last Filed: 06/04/17 20:19> Subjective - Date & Time of Evaluation Date of Evaluation: 06/04/17 Time of Evaluation: 07:20 - Subjective Subjective: Progress note ( Dr. Cipriano Gordillo's service) Patient was seen and examined at bedside. Patient was resting comfortably in bed in no acute distress. Patient reports that she is doing well and has no acute complaints. Patient continues to report improving symptom of chest pain to no chest pain at all and denies SOB, palpitations, fever, chills, nausea, vomiting, diaphoresis and numbness and tingling. Patient is aware that she will be going for PCI at [facility] [place], 06/04/17 due to abnormal diagnostic cardiac catherization as explained to her and her daughter yesterday, 06/03/17 and to the patient this morning with the help of a translating nurse. Objective - Vital Signs/Intake and Output Vital Signs (last 24 hours): Temp Pulse Resp BP Pulse Ox 98.4 F 93 H 20 129/78 97 06/03/17 23:15 06/04/17 04:00 06/03/17 23:15 06/03/17 23:15 06/03/17 23:15 - Medications Medications: Current Medications Aspirin (Aspirin Chewable) 81 mg PO DAILY [facility] Last Admin: 06/04/17 09:07 Dose: Not Given Bisoprolol Fumarate (Zebeta) 10 mg PO DAILY [facility] Last Admin: 06/04/17 09:08 Dose: Not Given Clopidogrel Bisulfate (Plavix) 75 mg PO DAILY [facility] Last Admin: 06/04/17 09:08 Dose: Not Given Enoxaparin Sodium (Lovenox) 60 mg SC Q12 [facility] Last Admin: 06/03/17 21:15 Dose: 60 mg Famotidine (Pepcid) 20 mg PO BID [facility] Last Admin: 06/04/17 09:08 Dose: Not Given Rosuvastatin Calcium (Crestor) 10 mg PO HS [facility] Last Admin: 06/03/17 21:15 Dose: 10 mg - Labs Labs: 06/04/17 07:20 06/04/17 07:20 PT 12.8 SECONDS (9.7-12.2) H 06/03/17 06:55 INR 1.1 06/03/17 06:55 APTT 32 SECONDS (21-34) 05/30/17 07:16 Assessment and Plan (1) Typical angina Assessment & Plan: Assessment & Plan: Casket Inspector, Dr. Bach consulted, Help appreciated * Management as per recommendation * Stress test today, as per conversation with cardiology current resident, patient is for catherization on 06/03/17 * Patient underwent PCI at [facility] 06/04/17,will follow outcome Diagnostic imaging and labs: Chest X-ray: No active disease CT chest with IV contrast (Rule out Dissection): No evidence of aortic dissection. 2. Discoid atelectasis left upper lobe. EKG: NSR at 88bpm, Left ventricular hypertrophy with repolarization abnormality Echo: Left ventricular is normal size, normal ejection fraction, moderate AR, mild MR, mild to moderate TR and ND and mild to moderate pulmonary HTN. Refer to EMR for full report Abnormal stress test (06/02/17) Diagnostic cardiac catherization (06/03/17): Proximal LAD 99%, Mid LAD 90%,Other arteries unremarkable, EF 55%- Plans for PCI with Dr. Paris at [facility] [place] 06/04/2017 DARRYL negative x3 TSH 3.07 and T4 1.03 Lipid Panel: Tchol 248, Trig 275, LDL 149, HDL 42 HgbA1C: 6.1 Medications Aspirin 81mg PO daily Crestor 10mg PO HS Plavix 75mg PO daily Status: Acute (2) Hypertension Assessment & Plan: BP stable with medications Bisoprolol 10mg PO daily (increase from 5mg home dose) Low sodium diet Status: Acute (3) Glucose intolerance (impaired glucose tolerance) Assessment & Plan: HBA1c 6.1 Counselled on diet control and life style modification Status: Acute (4) Prophylactic measure Assessment & Plan: GI: Pepcid 20mg PO BID DVT: Lovenox 40mg SC, SCDs--->Lovenox 40mg SC dose will be held for PCI, 06/04/17 ; will restart based on change management analyst recommendation Heart healthy diet Activity as tolerated All plans and management discussed with Dr. Cipriano Gordillo Status: Acute <Levon Gordillo - Last Filed: 06/04/17 20:28> Objective - Vital Signs/Intake and Output Vital Signs (last 24 hours): Temp Pulse Resp BP Pulse Ox 98.9 F 88 20 114/73 97 06/04/17 19:35 04/19/18 19:35 06/04/17 19:35 06/04/17 19:35 06/04/17 19:35 - Medications Medications: Current Medications Aspirin (Aspirin Chewable) 81 mg PO DAILY [facility] Last Admin: 06/04/17 09:07 Dose: Not Given Bisoprolol Fumarate (Zebeta) 10 mg PO DAILY [facility] Last Admin: 06/04/17 09:08 Dose: Not Given Clopidogrel Bisulfate (Plavix) 75 mg PO DAILY [facility] Last Admin: 06/04/17 09:08 Dose: Not Given Enoxaparin Sodium (Lovenox) 60 mg SC Q12 [facility] Last Admin: 06/03/17 21:15 Dose: 60 mg Famotidine (Pepcid) 20 mg PO BID [facility] Last Admin: 06/04/17 09:08 Dose: Not Given Rosuvastatin Calcium (Crestor) 10 mg PO HS [facility] Last Admin: 06/03/17 21:15 Dose: 10 mg - Labs Labs: 06/04/17 07:20 06/04/17 07:20 PT 12.8 SECONDS (9.7-12.2) H 06/03/17 06:55 INR 1.1 06/03/17 06:55 APTT 32 SECONDS (21-34) 05/30/17 07:16 Attending/Attestation - Attestation I have personally seen and examined this patient.: No I have fully participated in the care of the patient.: Yes I have reviewed all pertinent clinical information, including history, physical exam and plan: Yes Notes (Text): 06/04/17 20:27 Multiple attempts were made to see this patient today however she was transferred to [facility] before I could see her and she had not returned the last time I attempted to see her. Levon Gordillo D.O.
[2017-06-05 07:20] LABS: BASO % 0.5 % (0.0-2.0); EOS % 0.9 % (0.0-4.0); HEMOGLOBIN 11.1 g/dL (11.0-16.0); LYMPH # 1.8 K/uL (1.0-4.3); LYMPH % 37.9 % (20.0-40.0); MEAN CELL VOLUME 80.3 fL (81.0-99.0); MEAN CORPUSCULAR HGB CONC 33.7 g/dL (33.0-37.0); MEAN PLATELET VOLUME 8.6 fL (7.2-11.7); MONO # 0.4 K/uL (0.0-0.8); MONO % 9.1 % (0.0-10.0); NEUT # 2.5 K/uL (1.8-7.0); NEUT % 51.6 % (50.0-75.0); RBC 4.12 Mil/uL (3.80-5.20); RED CELL DISTRIBUTION WIDTH 14.3 % (11.5-14.5); WHITE BLOOD COUNT 4.9 K/uL (4.8-10.8)
[2017-06-05 07:29] LABS: ALB/GLOB RATIO 0.9 (1.0-2.1); ALBUMIN 3.7 g/dL (3.5-5.0); ALT/SGPT 21 U/L (9-52); AST/SGOT 31 U/L (14-36); BLOOD UREA NITROGEN 12 mg/dL (7-17); CALCIUM 8.4 mg/dl (8.6-10.4); GFR AFRICAN-AMERICAN > 60; GFR NON-AFRICAN AMERICAN > 60
--- NOTE | 2017-06-05 14:54 | CP.PCM.DIS ---
Provider - Provider Date of Admission: 06/01/17 19:29 Attending physician: Levon Gordillo MD Time Spent in preparation of Discharge (in minutes): 35 Diagnosis - Discharge Diagnosis (1) Typical angina Status: Acute (2) Hypertension Status: Chronic (3) Glucose intolerance (impaired glucose tolerance) Status: Acute (4) Prophylactic measure Status: Acute Hospital Course - Lab Results Lab Results: Most Recent Lab Values WBC 4.9 K/uL (4.8-10.8) 06/05/17 06:59 RBC 4.12 Mil/uL (3.80-5.20) 06/05/17 06:59 Hgb 11.1 g/dL (11.0-16.0) 06/05/17 06:59 Hct 33.1 % (34.0-47.0) L 06/05/17 06:59 MCV 80.3 fL (81.0-99.0) L 06/05/17 06:59 MCH 27.0 pg (27.0-31.0) 06/05/17 06:59 MCHC 33.7 g/dL (33.0-37.0) 06/05/17 06:59 RDW 14.3 % (11.5-14.5) 06/05/17 06:59 Plt Count 220 K/uL (130-400) 06/05/17 06:59 MPV 8.6 fL (7.2-11.7) 06/05/17 06:59 Neut % (Auto) 51.6 % (50.0-75.0) 06/05/17 06:59 Lymph % (Auto) 37.9 % (20.0-40.0) 06/05/17 06:59 Angelina % (Auto) 9.1 % (0.0-10.0) 06/05/17 06:59 Eos % (Auto) 0.9 % (0.0-4.0) 06/05/17 06:59 Baso % (Auto) 0.5 % (0.0-2.0) 06/05/17 06:59 Neut # (Auto) 2.5 K/uL (1.8-7.0) 06/05/17 06:59 Lymph # (Auto) 1.8 K/uL (1.0-4.3) 06/05/17 06:59 Angelina # (Auto) 0.4 K/uL (0.0-0.8) 06/05/17 06:59 Eos # (Auto) 0.0 K/uL (0.0-0.7) 06/05/17 06:59 Baso # (Auto) 0.0 K/uL (0.0-0.2) 06/05/17 06:59 PT 12.8 SECONDS (9.7-12.2) H 06/03/17 06:55 INR 1.1 06/03/17 06:55 APTT 32 SECONDS (21-34) 05/30/17 07:16 Sodium 141 mmol/L (132-148) 06/05/17 06:59 Potassium 3.7 mmol/L (3.6-5.2) 06/05/17 06:59 Chloride 101 mmol/L (98-107) 06/05/17 06:59 Carbon Dioxide 25 mmol/L (22-30) 06/05/17 06:59 Anion Gap 18 (10-20) 06/05/17 06:59 BUN 12 mg/dL (7-17) 06/05/17 06:59 Creatinine 0.8 mg/dL (0.7-1.2) 06/05/17 06:59 Est GFR ( Amer) > 60 06/05/17 06:59 Est GFR (Non-Af Amer) > 60 06/05/17 06:59 Random Glucose 112 mg/dL (65-105) H 06/05/17 06:59 Hemoglobin A1c 6.1 % (4.2-6.5) 05/30/17 07:16 Calcium 8.4 mg/dl (8.6-10.4) L 06/05/17 06:59 Phosphorus 3.5 mg/dL (2.5-4.5) 06/05/17 06:59 Magnesium 1.9 mg/dL (1.6-2.3) 06/05/17 06:59 Total Bilirubin 0.9 mg/dL (0.2-1.3) 06/05/17 06:59 AST 31 U/L (14-36) 06/05/17 06:59 ALT 21 U/L (9-52) 06/05/17 06:59 Alkaline Phosphatase 76 U/L (38-126) 06/05/17 06:59 Total Creatine Kinase 62 U/L (30-135) 05/30/17 07:54 CK-MB (Mass) 0.31 ng/mL (0.0-3.38) 05/30/17 07:54 Troponin I 0.0630 ng/mL (0.00-0.120) 05/30/17 07:54 Total Protein 7.7 g/dL (6.3-8.3) 06/05/17 06:59 Albumin 3.7 g/dL (3.5-5.0) 06/05/17 06:59 Globulin 4.0 gm/dL (2.2-3.9) H 06/05/17 06:59 Albumin/Globulin Ratio 0.9 (1.0-2.1) L 06/05/17 06:59 Triglycerides 275 mg/dL (0-149) H 05/30/17 07:16 Cholesterol 248 mg/dL (0-199) H 05/30/17 07:16 LDL Cholesterol Direct 149 mg/dL (0-129) H 05/30/17 07:16 HDL Cholesterol 42 mg/dL (30-70) 05/30/17 07:16 Free T4 1.03 ng/dL (0.78-2.19) 05/30/17 07:16 TSH 3rd Generation 3.07 mIU/L (0.46-4.68) 05/30/17 07:16 - Hospital Course Hospital Course: HPI ( As per admission): Patient is a 72 year old female with past medical history of HTN, who presents to the ED with her daughter with complaints of chest pain that started yesterday , while she was sleeping. Patient describes her chest pain as sharp that originates for mid-sternum to left chest wall and radiating to her neck/throat region. Patient noted associated symptoms of palpitations, diaphoresis and dyspnea and headache. Patient states she felt like she could not breath with the onset of her chest pain and it was exacerbated with walking. Patient denies prior history of this presentation, fever, chills, nausea, vomiting, neck stiffness, blurry vision, recent travels or numbness and tingling. As per daughter, patient has not seek medical care in over 5 years due to back and forth travelling to the and [place]. Hospital Course: Patient was admitted with the diagnosis of chest pain. Specialty Development Consultant, Dr. Bach was consulted, who administered a stress test which noted abnormal results. Subsequently, patient had a diagnostic cardiac catherization, which noted Proximal LAD 99%, Mid LAD 90%,Other arteries unremarkable, EF 55%, therefore, patient was scheduled for PCI at [facility] Over the course of admission, patient had no acute issues and tolerated all procedure well. In addition, patient's symptoms increased significantly over the course of admission. Patient was stable upon discharge and patient was discharged home with appropriate medications and instructions. Pertinent diagnostic testing: Chest X-ray: No active disease CT chest with IV contrast (Rule out Dissection): No evidence of aortic dissection. 2. Discoid atelectasis left upper lobe. EKG: NSR at 88bpm, Left ventricular hypertrophy with repolarization abnormality Echo: Left ventricular is normal size, normal ejection fraction, moderate AR, mild MR, mild to moderate TR and DE and mild to moderate pulmonary HTN. Refer to EMR for full report Abnormal stress test (06/02/17) Diagnostic cardiac catherization (06/03/17): Proximal LAD 99%, Mid LAD 90%,Other arteries unremarkable, EF 55%- Plans for PCI with Dr. Paris at [facility] 06/04/2017 DARRYL negative x3 TSH 3.07 and T4 1.03 Lipid Panel: Tchol 248, Trig 275, LDL 149, HDL 42 HgbA1C: 6.1 This is a brief summary of event. For a complete event, please refer to the medical record Discharge Exam - Head Exam Head Exam: ATRAUMATIC, NORMAL INSPECTION - Eye Exam Eye Exam: EOMI, Normal appearance - ENT Exam ENT Exam: Mucous Membranes Dry - Respiratory Exam Respiratory Exam: Clear to PA & Lateral, NORMAL BREATHING PATTERN. absent: Chest Wall Tenderness, Rales, Wheezes, Respiratory Distress - Cardiovascular Exam Cardiovascular Exam: REGULAR RHYTHM, +S1, +S2. absent: Systolic Murmur - GI/Abdominal Exam GI & Abdominal Exam: Normal Bowel Sounds, Soft. absent: Distended, Firm, Guarding, Tenderness, Unremarkable - Extremities Exam Extremities exam: normal inspection - Neurological Exam Neurological exam: Alert, Oriented x3 Discharge Plan - Discharge Medications Prescriptions: Aspirin 81 mg PO DAILY 30 Days #30 tab.chew Atorvastatin [Lipitor] 20 mg PO DAILY 30 Days #30 tab Bisoprolol [Zebeta] 10 mg PO DAILY 30 Days #30 tab Clopidogrel [Plavix] 75 mg PO DAILY 30 Days #30 tab - Follow Up Plan Condition: STABLE Disposition: HOME/ ROUTINE Instructions: Heart Healthy Diet, High Blood Pressure (DC), Cardiac Catheterization (DC), Angina (DC), Chest Pain (DC), Aspirin, Atorvastatin, Bisoprolol, Clopidogrel, Hypertension (DC) Additional Instructions: Please discharge patient home Please continue the following medications: 1. Lipitor 20mg PO daily (Please take 1 tablet daily at dinner time) 2. Aspirin 81mg PO daily (Please take 1 tablet daily at breakfast time) 3. Bisprolol 10mg PO daily (Please take 1 tablet daily at breakfast time) 4. Plavix 75mg PO daily (Please take 1 tablet daily at breakfast time), you will be on the medication for a year Please keep a healthy diet and monitor sugar intake as your HgbA1C is 6.1 Please exercise daily by going for a walk for 30 minutes daily Please follow up with [facility] to establish primary care, Please follow up with [facility] to establish cardiology care, with Dr. Swartz [phone] Please return to the ED/Hospital with symptoms of chest pain, palpitations, SOB , diaphoresis, severe headache. Please take care Por favor contine con los siguientes medicamentos: 1. Lipitor 20 mg PO todos los andujar (Por favor, tome 1 tableta al da a la hora de la severo) 2. Aspirina 81mg PO diariamente (tome 1 tableta al da en el desayuno) 3. Bisprolol 10mg PO por da (tome 1 tableta al da en el desayuno) 4. Plavix 75mg PO diariamente (tome 1 tableta al da en el desayuno) Mantenga cyrus dieta saludable y controle la ingesta de azcar ya que woodruff HgbA1C es 6.1 Por favor, jcarlos ejercicio diariamente dando un paseo de 30 minutos diarios Por favor, jcarlos un seguimiento con el [facility]ro [facility] para establecer la atencin primaria, Por favor, jcarlos un seguimiento con el centro de [facility] para establecer la atencin de cardiologa, con el Dr. Swartz [phone] Por favor regrese al ED / Hospital con sntomas de dolor en el pecho, palpitaciones, SOB, diaforesis, dolor de jozef neha. Por favor cudate Referrals: [facility] [Outside]
[2017-06-05 15:46] VITALS: BP 112/69; PULSE 69; TEMP 98.5; O2SAT 100
== END 2017-06-05 16:48 | disposition home or self-care (01) | DRG 287 ==
LOC: C.ER 19:18 → C.9E 22:23 → C.6T 22:53 → OBSVTOIN 06-01 19:29 → C.6T 06-02 10:09
PROVIDERS: ADMIT Family Medicine; ATTEND Family Medicine
PROC: B211YZZ Fluoroscopy of Multiple Coronary Arteries using Other Contrast (ICD-10-PCS; 2017-06-03)
PROC: B215YZZ Fluoroscopy of Left Heart using Other Contrast (ICD-10-PCS; 2017-06-03)
PROC: 4A023N7 Measurement of Cardiac Sampling and Pressure, Left Heart, Percutaneous Approach (ICD-10-PCS; principal; 2017-06-03 08:00)
DX: I25.119 Atherosclerotic heart disease of native coronary artery with unspecified angina pectoris (principal); J98.11 Atelectasis; I10 Essential (primary) hypertension; I27.20 Pulmonary hypertension, unspecified; R73.02 Impaired glucose tolerance (oral)